=== PATIENT | female | born 1975 | race African-American/Black ===

== ENCOUNTER 2017-12-16 12:26 | Inpatient (IN) | payer MEDICAID ==
[2017-12-16] MEDS ORDERED: ONDANSETRON HCL INJ/PF 4 MG/2 ML SDV IV ONE (13:12)
[2017-12-16] MEDS ORDERED: HYDROMORPHONE HCL INJ/PF 2 MG/ML AMPULE IV ONE ×2 (13:12→15:52)
--- NOTE | 2017-12-16 13:14 | ER Document Report ---
ED Medical Screen (RME) - General Chief Complaint: Abdominal Pain Stated Complaint: ABDOMINAL PAIN Time Seen by Provider: 12/16/17 13:05 Mode of Arrival: Wheelchair Information source: Patient Notes: 42-year-old female presents with left lower quadrant abdominal pain that started 15 hours prior to arrival. Patient describes it as a constant stabbing pain with associated nausea and vomiting. Patient reports multiple abdominal surgeries including gastric bypass, panniculectomy, cholecystectomy, appendectomy, tubal ligation. I have greeted and performed a rapid initial assessment of this patient. A comprehensive ED assessment and evaluation of the patient, analysis of test results and completion of medical decision making process we will be contacted by additional ED providers. PHYSICAL EXAMINATION: Vital signs reviewed-afebrile GENERAL: Ill-appearing, mild distress LUNGS: No respiratory distress Musculoskeletal: Normal range of motion NEUROLOGICAL: Normal speech, normal gait. PSYCH: Normal mood, normal affect. SKIN: Warm, Dry, normal turgor, no rashes or lesions noted. TRAVEL OUTSIDE OF THE [place] IN LAST 30 DAYS: No - HPI Onset: Yesterday Onset/Duration: Gradual Quality of pain: Stabbing Associated Symptoms: Abdominal pain, Nausea, Vomiting Exacerbated by: Movement Relieved by: Denies Similar symptoms previously: No Recently seen / treated by doctor: No - Related Data Smoking: Non-smoker Frequency of alcohol use: None Drug Abuse: None Past Medical History Renal/ Medical History: Denies: Hx Peritoneal Dialysis Physical Exam - Vital signs Vitals: Temp Pulse Resp BP Pulse Ox 99.0 F 76 18 101/56 L 100 12/16/17 12:39 12/16/17 12:39 12/16/17 12:39 12/16/17 12:39 12/16/17 12:39 Course - Vital Signs Vital signs: Temp Pulse Resp BP Pulse Ox 99.0 F 76 18 101/56 L 100 12/16/17 12:39 12/16/17 12:39 12/16/17 12:39 12/16/17 12:39 12/16/17 12:39
[2017-12-16 13:55] LABS: APPEARANCE,URINE SLIGHTLY-CLOUDY; BILIRUBIN,URINE NEGATIVE (NEGATIVE); COLOR,URINE YELLOW; GLUCOSE, URINE NEGATIVE (NEGATIVE); KETONES,URINE NEGATIVE (NEGATIVE); LEUKOCYTE ESTERASE,URINE NEGATIVE (NEGATIVE); NITRITE,URINE NEGATIVE (NEGATIVE); PROTEIN,URINE NEGATIVE (NEGATIVE); URINE SPECIFIC GRAVITY 1.021; UROBILINOGEN,URINE NEGATIVE mg/dL (<2.0)
[2017-12-16 14:08] LABS: ABSOLUTE LYMPHOCYTES (AUTO) 0.6 10^3/uL (0.5-4.7); ABSOLUTE MONOCYTES (AUTO) 0.3 10^3/uL (0.1-1.4); ABSOLUTE NEUT (AUTO) 2.3 10^3/uL (1.7-8.2); BASOPHILS % (AUTO) 0.8 % (0-2); EOSINOPHILS % (AUTO) 1.3 % (0-6); HEMATOCRIT 25.9 % (36.0-47.0); LYMPHOCYTES % (AUTO) 17.7 % (13-45); MEAN CORPUSCULAR HEMOGLOBIN 17.6 pg (27.0-33.4); MEAN CORPUSCULAR HGB CONC 29.9 g/dL (32.0-36.0); MONOCYTES % (AUTO) 8.5 % (3-13); PLATELET COUNT 183 10^3/uL (150-450); RED CELL DISTRIBUTION WIDTH 20.3 % (11.5-14.0); SEGMENTED NEUTROPHILS % (AUTO) 71.7 % (42-78); TOTAL CELLS COUNTED % (AUTO) 100 %; WHITE BLOOD COUNT 3.3 10^3/uL (4.0-10.5)
[2017-12-16 14:14] LABS: ALANINE AMINOTRANSFERASE 27 U/L (9-52); ALBUMIN 4.4 g/dL (3.5-5.0); ALKALINE PHOSPHATASE 84 U/L (38-126); ANION GAP 13 (5-19); ASPARTATE AMINO TRANSFERASE 26 U/L (14-36); BILIRUBIN,DIRECT 0.2 mg/dL (0.0-0.4); BLOOD UREA NITROGEN 10 mg/dL (7-20); CALCIUM 9.5 mg/dL (8.4-10.2); CARBON DIOXIDE 19 mmol/L (22-30); CHLORIDE 107 mmol/L (98-107); GLUCOSE 81 mg/dL (75-110); LIPASE 98.7 U/L (23-300); POTASSIUM 4.7 mmol/L (3.6-5.0); SODIUM 138.7 mmol/L (137-145)
[2017-12-16 14:29] LABS: HEMOGLOBIN 7.8 g/dL (12.0-15.5)
[2017-12-16 14:30] LABS: MEAN CORPUSCULAR VOLUME 59 fl (80-97)
[2017-12-16 14:44] LABS: ANISOCYTOSIS 2+; HYPOCHROMASIA 3+; OVALOCYTES SLIGHT; PLATELET COMMENT ADEQUATE; PLATELET GIANT PRESENT; PLATELET LARGE PRESENT; POIKILOCYTOSIS SLIGHT
--- NOTE | 2017-12-16 15:00 | RADIOLOGY REPORT (SQ) ---
EXAM DESCRIPTION: CT ABD/PELVIS WITH IV ONLY COMPLETED DATE/TIME: 12/16/2017 2:36 pm REASON FOR STUDY: Right lower quadrant left lower quadrant abdominal pain COMPARISON: None. TECHNIQUE: CT scan of the abdomen and pelvis performed using helical scanning technique with dynamic intravenous contrast injection. No oral contrast. Images reviewed with lung, soft tissue, and bone windows. Reconstructed coronal and sagittal MPR images reviewed. Delayed images for evaluation of the urinary system also acquired. All images stored on PACS. All CT scanners at this facility use dose modulation, iterative reconstruction, and/or weight based d osing when appropriate to reduce radiation dose to as low as reasonably achievable (ALARA). [facility]: Dose Right [facility]: CareDose [facility]: Dose Right [facility]: Teradose 4D [facility]: [place] CONTRAST TYPE AND DOSE: contrast/concentration: Isovue 350.00 mg/ml; Total Contrast Delivered: 99.0 ml; Total Saline Delivered: 56.0 ml 99 mL IV Omnipaque 350- low osmolar. RENAL FUNCTION: BUN 10 creatinine 0.55 RADIATION DOSE: CT Rad equipment meets quality standard of care and radiation dose reduction techniq ues were employed. CTDIvol: 15.4 - 18.9 mGy. DLP: 1747 mGy-cm.. LIMITATIONS: None. FINDINGS: LOWER CHEST: No significant findings. No nodules or infiltrates. LIVER: Normal size. No masses. Mild intrahepatic and extrahepatic biliary dilatation, likely seconda ry to postcholecystectomy changes. SPLEEN: Normal size. No focal lesions. PANCREAS: No masses. No significant calcifications. No adjacent inflammation or peripancreatic fluid collections. Pancreatic duct not dilated. GALLBLADDER: Surgically absent. ADRENAL GLANDS: No significant masses or asymmetry. RIGHT KIDNEY AND URETER: No solid masses. No significant calcifications. No hydronephrosis or hy droureter. LEFT KIDNEY AND URETER: No solid masses. 1.5 x 2.0 cm cyst within the inferolateral cortex of the le ft kidney. No significant calcifications. No hydronephrosis or hydroureter. AORTA AND VESSELS: No aneurysm. No dissection. Renal arteries, SMA, celiac without stenosis. RETROPERITONEUM: No retroperitoneal adenopathy, hemorrhage or masses. BOWEL AND PERITONEAL CAVITY: No dilated loops of bowel. Suture material courses along the stomach. Minimal thickening with enhancement of the bolton of the sigmoid colon and rectum. No pericolonic fat stranding. No free fluid. No free air. APPENDIX: Surgically absent. PELVIS: Urinary bladder is collapsed. Left adnexal hypodensity measuring 5.2 x 5.7 cm. ABDOMINAL WALL: No masses. Tiny fat containing umbilical hernia. BONES: Schmorl's node of the posterosuperior endplate of L5. OTHER: No other significant finding. IMPRESSION: 1. Minimal thickening with enhancement within sigmoid colon and rectum. Infectious versus inflammato ry colitis. 2. Large left adnexal hypodensity, likely representing a benign ovarian cyst. Based on the patient's age in size, follow-up ultrasound recommended in 6 to 12 weeks to ensure stability versus resolution . TECHNICAL DOCUMENTATION: JOB ID: [id number] Quality ID # [id number]: Final reports with documentation of one or more dose reduction techniques (e.g., Au tomated exposure control, adjustment of the mA and/or kV according to patient size, use of iterative reconstruction technique) 2010 [employer]- All Rights Reserved Reading location - IP/workstation name: [email or web address]
--- NOTE | 2017-12-16 15:53 | ER Document Report ---
ED General - General Chief Complaint: Abdominal Pain Stated Complaint: ABDOMINAL PAIN Time Seen by Provider: 12/16/17 13:05 Mode of Arrival: Wheelchair Notes: 42-year-old female presents emergency department complaints of left lower quadrant abdominal pain that started about 15 hours prior to arrival to the emergency department. Patient describes the pain as a sharp and stabbing sensation localized to the left lower quadrant. She denies any radiation of the pain. She denies any alleviating or exacerbating factors. She is having some associated nausea and vomiting. She denies any diarrhea, constipation, dysuria, hematuria, vaginal bleeding, vaginal discharge. Patient states that she has had multiple abdominal surgeries. She has had gastric bypass, panniculectomy, cholecystectomy, appendectomy, tubal ligation. TRAVEL OUTSIDE OF THE [place] IN LAST 30 DAYS: No - HPI Onset: This morning Onset/Duration: Sudden Quality of pain: Sharp, Stabbing Severity: Severe Pain Level: 5 Associated symptoms: Nausea, Vomiting Exacerbated by: Denies Relieved by: Denies Similar symptoms previously: No Recently seen / treated by doctor: No - Related Data Allergies/Adverse Reactions: acetaminophen [From Percocet] Allergy (Verified 12/16/17 13:18) morphine Allergy (Verified 12/16/17 13:18) oxycodone Allergy (Verified 12/16/17 13:18) Penicillins Allergy (Verified 12/16/17 13:18) Respiratory distress ibuprofen Adverse Reaction (Verified 12/16/17 13:18) Past Medical History - General Information source: Patient - Social History Smoking Status: Never Smoker Frequency of alcohol use: None Drug Abuse: None Family History: Reviewed & Not Pertinent Patient has suicidal ideation: No Patient has homicidal ideation: No Pulmonary Medical History: Reports: Hx Asthma Renal/ Medical History: Denies: Hx Peritoneal Dialysis Past Surgical History: Reports: Hx Abdominal Surgery - Hernia Repair, Hx Appendectomy, Hx Cholecystectomy, Hx Gynecologic Surgery - Tubal Ligation Review of Systems - Review of Systems Constitutional: No symptoms reported EENT: No symptoms reported Cardiovascular: No symptoms reported Respiratory: No symptoms reported Gastrointestinal: Abdominal pain, Nausea, Vomiting Genitourinary: No symptoms reported Female Genitourinary: No symptoms reported Musculoskeletal: No symptoms reported Skin: No symptoms reported Neurological/Psychological: No symptoms reported -: Yes All other systems reviewed and negative Physical Exam - Vital signs Vitals: Temp Pulse Resp BP Pulse Ox 99.0 F 76 18 101/56 L 100 12/16/17 12:39 12/16/17 12:39 12/16/17 12:39 12/16/17 12:39 12/16/17 12:39 - Notes Notes: PHYSICAL EXAMINATION: GENERAL: Pale. And pain. HEAD: Atraumatic, normocephalic. EYES: Pupils equal round and reactive to light, extraocular movements intact, conjunctiva are normal. ENT: Nares patent, oropharynx clear without exudates. Moist mucous membranes. NECK: Normal range of motion, supple without lymphadenopathy LUNGS: Breath sounds clear to auscultation bilaterally and equal. No wheezes rales or rhonchi. HEART: Regular rate and rhythm without murmurs ABDOMEN: Soft, tenderness to palpation in the left lower quadrant. No guarding , no rebound. No masses appreciated. Female : deferred Musculoskeletal: Normal range of motion, no pitting or edema. No cyanosis. NEUROLOGICAL: Cranial nerves grossly intact. Normal speech, normal gait. Normal sensory, motor exams PSYCH: Normal mood, normal affect. SKIN: Warm, Dry, normal turgor, no rashes or lesions noted. Course - Re-evaluation Re-evalutation: 12/16/17 15:56 Patient having severe pain in the left lower quadrant area. Large ovarian cyst appreciated in this area. Also infectious versus inflammatory colitis was identified. I will obtain a pelvic ultrasound to rule out ovarian torsion. 12/16/17 17:13 Pelvic ultrasound done. No torsion appreciated. Hemoglobin is 7.8. Hemoccult negative. No gross blood on rectal examination. I discussed the abnormally low hemoglobin with the patient. She states that she has had issues with anemia in the past. She states that she has required blood transfusions for her anemia. Her last blood transfusion was in May 2017. I contacted the hospitalist for admission for repeat H&H and pain management for her colitis. The hospitalist is agreeable with admission. - Vital Signs Vital signs: Temp Pulse Resp BP Pulse Ox 99.0 F 76 18 101/56 L 100 12/16/17 12:39 12/16/17 12:39 12/16/17 12:39 12/16/17 12:39 12/16/17 12:39 - Laboratory Result Diagrams: 12/16/17 13:27 12/16/17 13:27 Laboratory results interpreted by me: 10/07/18 10/07/18 13:27 13:27 WBC 3.3 L Hgb 7.8 L Hct 25.9 L MCV 59 L MCH 17.6 L MCHC 29.9 L RDW 20.3 H Carbon Dioxide 19 L Discharge - Discharge Clinical Impression: Colitis Anemia Qualifiers: Anemia type: unspecified type Qualified Code(s): D64.9 - Anemia, unspecified Condition: Good Disposition: ADMITTED OBSERVATION Admitting Provider: Hospitalist Unit Admitted: Medical Floor Forms: Parent Work Note Referrals: PRASANNA DE GUZMAN JR, MD [Primary Care Provider] - Follow up as needed
--- NOTE | 2017-12-16 17:02 | RADIOLOGY REPORT (SQ) ---
EXAM DESCRIPTION: U/S NON OB PEL TV W/DOPPLER COMPLETED DATE/TIME: 12/16/2017 4:47 pm REASON FOR STUDY: Ovarian torsion. LLQ pain. COMPARISON: None. TECHNIQUE: Dynamic and static grayscale images acquired of the pelvis via transvaginal approach and recorded on PACS. Additional selected color Doppler and spectral images recorded. LIMITATIONS: None. FINDINGS: UTERUS: Contour normal. No mass. Uterus is 9.2 x 6.5 x 5.1 cm in size ENDOMETRIAL STRIPE: No focal or generalized thickening. No masses. Endometrial stripe 5 mm in thickn ess CERVIX: Closed, 3.4 cm in length. No nabothian cysts. RIGHT OVARY AND DOPPLER: Normal size, 3.3 x 2.6 x 1.9 cm. No worrisome masses. Normal arterial vascul ar flow without evidence for torsion. LEFT OVARY AND DOPPLER: Left ovary is 6.8 x 5.3 x 7.8 cm in size with a hemorrhagic cyst measuring 6. 5 x 6 x 5 cm in size. Normal arterial vascular flow without evidence for torsion. FREE FLUID: None noted. OTHER: No other significant finding. IMPRESSION: Hemorrhagic cyst left ovary, 6.5 x 6 x 5 cm in size. No Doppler ultrasound evidence for left ovarian torsion TECHNICAL DOCUMENTATION: JOB ID: [id number] [employer]- All Rights Reserved Rev-07/27 Reading location - IP/workstation name: [email or web address]
[2017-12-16] MEDS ORDERED: ONDANSETRON HCL INJ/PF 4 MG/2 ML SDV IV SCH (18:00)
[2017-12-16] MEDS ORDERED: FERRIC CARBOXYMALTOSE INJ 750 MG/15 ML VIAL IV ONE (18:00)
--- NOTE | 2017-12-16 18:09 | PDOC H&P ---
History of Present Illness Admission Date/PCP: PRASANNA DE GUZMAN JR, MD Patient complains of: Left lower quadrant abdominal pain, nausea, vomiting. 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 Patient presented to ED sharp, constant, nonradiating left lower abdominal pain 10/10 on severity scale, worsened by movement and palpation and decreased by staying still. She has had 3 nonbilious, nonbloody vomiting and 4 nonbloody diarrhea since yesterday. She also complaining of low- grade fever and painful urination however she denies any urgency, hesitancy, dysuria or any hematuria. She denies any chest pain shortness of breath, hematemesis, hemoptysis, melena, hematochezia or any vaginal bleeding. Past surgical history is positive for 2 , cholecystectomy, appendectomy and bariatric surgery. She is not taking any medications. She states she is not taking any iron for iron deficiency anemia as it has not been working. Her anemia has been evaluated in the past by a television reporter and it was concluded that it was due to iron deficiency. CT of abdomen and pelvis with IV contrast in ED showed minimal thickening with enhancement within sigmoid colon and rectum likely infectious versus inflammatory colitis. A large left adnexal hypodensity was also noted follow- up transvaginal ultrasound showed hemorrhagic left ovarian cyst 6.5 x 6.5 cm in size no evidence of left ovarian torsion was noted. DONNIE and stool guaiac was in ED were both negative for any sign of bleeding. Hospitalist was consulted for admission for management of colitis and anemia. Past Medical History Pulmonary Medical History: Reports: Asthma Hematology: Reports: Anemia Past Surgical History Past Surgical History: Reports: Appendectomy, Cholecystectomy Social History Information Source: Patient Lives with: Spouse/Significant other Smoking Status: Never Smoker Frequency of Alcohol Use: None Hx Recreational Drug Use: No Drugs: None Family History Family History: Reviewed & Not Pertinent Parental Family History Reviewed: Yes Children Family History Reviewed: Yes Sibling(s) Family History Reviewed.: Yes Medication/Allergy Allergies/Adverse Reactions: acetaminophen [From Percocet] Allergy (Verified 12/16/17 13:18) morphine Allergy (Verified 12/16/17 13:18) oxycodone Allergy (Verified 12/16/17 13:18) Penicillins Allergy (Verified 12/16/17 13:18) Respiratory distress ibuprofen Adverse Reaction (Verified 12/16/17 13:18) Review of Systems Review of Systems: As per HPI Physical Exam Vital Signs: Temp Pulse Resp BP Pulse Ox 99.0 F 76 18 101/56 L 100 12/16/17 12:39 12/16/17 12:39 12/16/17 12:39 12/16/17 12:39 12/16/17 12:39 Intake & Output 12/15/17 12/16/17 12/17/17 06:59 06:59 06:59 Weight 89.7 kg General appearance: PRESENT: no acute distress, well-developed, well-nourished Head exam: PRESENT: atraumatic, normocephalic Eye exam: PRESENT: conjunctiva pink, EOMI, PERRLA. ABSENT: scleral icterus Ear exam: PRESENT: normal external ear exam Mouth exam: PRESENT: moist, tongue midline Neck exam: ABSENT: carotid bruit, JVD, lymphadenopathy, thyromegaly Respiratory exam: PRESENT: clear to auscultation alexandrea. ABSENT: rales, rhonchi, wheezes Cardiovascular exam: PRESENT: RRR. ABSENT: diastolic murmur, rubs, systolic murmur Pulses: PRESENT: normal dorsalis pedis pul Vascular exam: PRESENT: normal capillary refill GI/Abdominal exam: PRESENT: guarding, normal bowel sounds, soft, tenderness. ABSENT: distended, mass, organolmegaly, rebound Rectal exam: PRESENT: deferred Extremities exam: PRESENT: full ROM. ABSENT: calf tenderness, clubbing, pedal edema Neurological exam: PRESENT: alert, awake, oriented to person, oriented to place , oriented to time, oriented to situation, CN II-XII grossly intact. ABSENT: motor sensory deficit Psychiatric exam: PRESENT: appropriate affect, normal mood. ABSENT: homicidal ideation, suicidal ideation Skin exam: PRESENT: dry, intact, warm. ABSENT: cyanosis, rash Results Laboratory Results: 12/16/17 13:27 12/16/17 13:27 12/16/17 12/16/17 12/16/17 13:27 13:27 13:27 WBC 3.3 L RBC 4.40 Hgb 7.8 L Hct 25.9 L MCV 59 L MCH 17.6 L MCHC 29.9 L RDW 20.3 H Plt Count 183 Seg Neutrophils % 71.7 Lymphocytes % 17.7 Monocytes % 8.5 Eosinophils % 1.3 Basophils % 0.8 Absolute Neutrophils 2.3 Absolute Lymphocytes 0.6 Absolute Monocytes 0.3 Absolute Eosinophils 0.0 Absolute Basophils 0.0 Sodium 138.7 Potassium 4.7 Chloride 107 Carbon Dioxide 19 L Anion Gap 13 BUN 10 Creatinine 0.55 Est GFR ( Amer) > 60 Est GFR (Non-Af Amer) > 60 Glucose 81 Calcium 9.5 Total Bilirubin 1.0 AST 26 ALT 27 Alkaline Phosphatase 84 Total Protein 8.0 Albumin 4.4 Lipase 98.7 Urine Color YELLOW Urine Appearance SLIGHTLY-CLOUDY Urine pH 7.0 Ur Specific [place] 1.021 Urine Protein NEGATIVE Urine Glucose (UA) NEGATIVE Urine Ketones NEGATIVE Urine Blood NEGATIVE Urine Nitrite NEGATIVE Ur Leukocyte Esterase NEGATIVE Urine WBC (Auto) 1 Urine RBC (Auto) 0 Stool Occult Blood Blood Type Antibody Screen 12/16/17 12/16/17 15:02 15:51 WBC RBC Hgb Hct MCV MCH MCHC RDW Plt Count Seg Neutrophils % Lymphocytes % Monocytes % Eosinophils % Basophils % Absolute Neutrophils Absolute Lymphocytes Absolute Monocytes Absolute Eosinophils Absolute Basophils Sodium Potassium Chloride Carbon Dioxide Anion Gap BUN Creatinine Est GFR ( Amer) Est GFR (Non-Af Amer) Glucose Calcium Total Bilirubin AST ALT Alkaline Phosphatase Total Protein Albumin Lipase Urine Color Urine Appearance Urine pH Ur Specific [place] Urine Protein Urine Glucose (UA) Urine Ketones Urine Blood Urine Nitrite Ur Leukocyte Esterase Urine WBC (Auto) Urine RBC (Auto) Stool Occult Blood NEGATIVE Blood Type O POSITIVE Antibody Screen NEGATIVE Impressions: Abdomen/Pelvis CT 12/16/17 13:11 IMPRESSION: 1. Minimal thickening with enhancement within sigmoid colon and rectum. Infectious versus inflammatory colitis. 2. Large left adnexal hypodensity, likely representing a benign ovarian cyst. Based on the patient's age in size, follow-up ultrasound recommended in 6 to 12 weeks to ensure stability versus resolution. Transvaginal US 12/16/17 15:51 IMPRESSION: Hemorrhagic cyst left ovary, 6.5 x 6 x 5 cm in size. No Doppler ultrasound evidence for left ovarian torsion Assessment & Plan - Diagnosis (1) Colitis Is this a current diagnosis for this admission?: Yes Plan: CT abdomen positive for enhancement within sigmoid colon and rectum. Negative for diverticulitis. No history of radiation. IV levofloxacin. Stool study for C. difficile, ova and parasite, white blood cells, Gram stain and culture. Pain management with Dilaudid as patient is allergic to morphine oxycodone ibuprofen and acetaminophen. (2) Nausea vomiting and diarrhea Is this a current diagnosis for this admission?: Yes Plan: Likely viral gastroenteritis. Negative leukocytosis. Anti-emetics. Volume resuscitation. Monitor vitals. (3) Hemorrhagic cyst of left ovary Is this a current diagnosis for this admission?: Yes Plan: Unlikely the source of pain. Could be an incidental finding. Transvaginal ultrasound negative for torsion. Consult PACE ANALYST for further recommendation. (4) Anemia Qualifiers: Anemia type: iron deficiency Is this a current diagnosis for this admission?: Yes Plan: Microcytic. As per HPI patient states that she has had iron deficiency anemia since she had bariatric surgery in 2016. She has received this several PRBC infusion and several iron infusion. She states her anemia has been worked up by a television reporter at [place]. We will get another iron panel. 1 dose of Injectafer. CBC at 2000. If under 7 transfuse. (5) Hx of bariatric surgery Is this a current diagnosis for this admission?: Yes Plan: Patient has had bariatric surgery in 2016. Per patient her anemia was a complication of her bariatric surgery.
[2017-12-16 18:22] LABS: ABSOLUTE RETICS # 0.072 10^6/uL (0.028-0.122); RETICULOCYTE COUNT (AUTO) 1.66 % (0.66-2.85)
[2017-12-16 18:34] LABS: IRON(TIBC) 20.2 ug/dL (37-170)
[2017-12-16] MEDS ORDERED: NORMAL SALINE 250 ML IV PRN (18:38)
[2017-12-16 19:10] LABS: FERRITIN 4.02 ng/mL (6.2-137.0)
[2017-12-16] MEDS: LEVOFLOXACIN 750 MG/D5W RTU 750 MG/150 ML RTUPB IV SCH (19:21)
[2017-12-16] MEDS: HYDROMORPHONE HCL INJ/PF 2 MG/ML AMPULE IV PRN ×2 (19:21→22:27)
[2017-12-16] MEDS: DEXTROSE 5%-NORMAL SALINE 1,000 ML IV PRN (19:22)
[2017-12-16 19:40] LABS: FOLATE 4.71 ng/mL (>2.76)
[2017-12-16] MEDS ORDERED: METOCLOPRAMIDE HCL INJ/PF 10 MG/2 ML SDV IV ONE (20:30)
[2017-12-16] MEDS: PANTOPRAZOLE SODIUM 40 MG VIAL IV SCH (22:18)
[2017-12-17] MEDS: METOCLOPRAMIDE HCL INJ/PF 10 MG/2 ML SDV IV SCH ×5 (00:51→23:23)
[2017-12-17] MEDS: HYDROMORPHONE HCL INJ/PF 2 MG/ML AMPULE IV PRN ×5 (01:26→20:23)
[2017-12-17 03:33] LABS: ABSOLUTE LYMPHOCYTES (AUTO) 0.5 10^3/uL (0.5-4.7); ABSOLUTE MONOCYTES (AUTO) 0.4 10^3/uL (0.1-1.4); ABSOLUTE NEUT (AUTO) 2.7 10^3/uL (1.7-8.2); BASOPHILS % (AUTO) 0.7 % (0-2); HEMATOCRIT 23.6 % (36.0-47.0); LYMPHOCYTES % (AUTO) 13.3 % (13-45); MEAN CORPUSCULAR HEMOGLOBIN 18.5 pg (27.0-33.4); MEAN CORPUSCULAR HGB CONC 30.2 g/dL (32.0-36.0); MEAN CORPUSCULAR VOLUME 61 fl (80-97); PLATELET COUNT 140 10^3/uL (150-450); RED BLOOD COUNT 3.85 10^6/uL (3.72-5.28); RED CELL DISTRIBUTION WIDTH 21.9 % (11.5-14.0); TOTAL CELLS COUNTED % (AUTO) 100 %; WHITE BLOOD COUNT 3.6 10^3/uL (4.0-10.5)
[2017-12-17 03:37] LABS: HEMOGLOBIN 7.1 g/dL (12.0-15.5)
[2017-12-17 03:44] LABS: ALANINE AMINOTRANSFERASE 33 U/L (9-52); ALBUMIN 3.5 g/dL (3.5-5.0); ALKALINE PHOSPHATASE 60 U/L (38-126); ANION GAP 11 (5-19); ASPARTATE AMINO TRANSFERASE 18 U/L (14-36); BILIRUBIN,DIRECT 0.2 mg/dL (0.0-0.4); BILIRUBIN,TOTAL 1.8 mg/dL (0.2-1.3); BLOOD UREA NITROGEN 9 mg/dL (7-20); CALCIUM 8.6 mg/dL (8.4-10.2); CARBON DIOXIDE 20 mmol/L (22-30); CHLORIDE 106 mmol/L (98-107); GLUCOSE 99 mg/dL (75-110); POTASSIUM 4.7 mmol/L (3.6-5.0); SODIUM 136.8 mmol/L (137-145); TOTAL PROTEIN 6.7 g/dL (6.3-8.2)
[2017-12-17 04:06] LABS: TOXIC GRANULATION SLIGHT
[2017-12-17 04:07] LABS: ANISOCYTOSIS 3+; HELMET CELLS SLIGHT; OVALOCYTES 3+; PLATELET COMMENT ADEQUATE; POIKILOCYTOSIS 4+
[2017-12-17 04:30] LABS: HEMATOCRIT 23.2 % (36.0-47.0); MEAN CORPUSCULAR HEMOGLOBIN 18.7 pg (27.0-33.4); MEAN CORPUSCULAR HGB CONC 31.2 g/dL (32.0-36.0); MEAN CORPUSCULAR VOLUME 60 fl (80-97); PLATELET COUNT 143 10^3/uL (150-450); RED BLOOD COUNT 3.86 10^6/uL (3.72-5.28); RED CELL DISTRIBUTION WIDTH 21.7 % (11.5-14.0); WHITE BLOOD COUNT 3.6 10^3/uL (4.0-10.5)
[2017-12-17 04:39] LABS: HEMOGLOBIN 7.2 g/dL (12.0-15.5)
--- NOTE | 2017-12-17 06:38 | PDOC CONSULTATION ---
History of Present Illness Admission Date/PCP: 12/16/17 17:29 PRASANNA DE GUZMAN JR, MD Patient complains of: abdominal pain, nausea and vomiting History of Present Illness: RAMÍREZ ARCE is a 42 year old female presented to ER with abdominal pain, nausea, vomiting and was admitted with findings of colitis on ct scan. Incidental finding of a hemorragic cyst on ovary. doppler flow displayed no evidence of torsion. Past Medical History Pulmonary Medical History: Reports: Asthma Psychiatric Medical History: Denies: Depression Social History Lives with: Spouse/Significant other Smoking Status: Never Smoker Frequency of Alcohol Use: None Hx Recreational Drug Use: No Drugs: None Hx Prescription Drug Abuse: No Family History Family History: Reviewed & Not Pertinent Parental Family History Reviewed: Yes Children Family History Reviewed: Yes Sibling(s) Family History Reviewed.: Yes Medication/Allergy Allergies/Adverse Reactions: acetaminophen [From Percocet] Allergy (Verified 12/16/17 13:18) morphine Allergy (Verified 12/16/17 13:18) oxycodone Allergy (Verified 12/16/17 13:18) Penicillins Allergy (Verified 12/16/17 13:18) Respiratory distress ibuprofen Adverse Reaction (Verified 12/16/17 13:18) Physical Exam - Physical Exam Vital Signs: Temp Pulse Resp BP Pulse Ox 98.6 F 64 16 112/58 L 98 12/17/17 00:45 12/17/17 00:45 12/17/17 00:45 12/17/17 00:45 12/17/17 00:45 Intake & Output 12/15/17 12/16/17 12/17/17 06:59 06:59 06:59 Intake Total 672 Balance 672 Weight 92.4 kg General appearance: PRESENT: no acute distress, cooperative GI/Abdominal exam: PRESENT: soft, tenderness Result Laboratory Results: 12/17/17 04:20 12/17/17 03:14 12/17/17 12/17/17 12/17/17 03:14 03:14 04:20 WBC 3.6 L 3.6 L RBC 3.85 3.86 Hgb 7.1 L 7.2 L Hct 23.6 L 23.2 L MCV 61 L 60 L MCH 18.5 L 18.7 L MCHC 30.2 L 31.2 L RDW 21.9 H 21.7 H Plt Count 140 L 143 L Seg Neutrophils % 75.0 Lymphocytes % 13.3 Monocytes % 10.0 Eosinophils % 1.0 Basophils % 0.7 Absolute Neutrophils 2.7 Absolute Lymphocytes 0.5 Absolute Monocytes 0.4 Absolute Eosinophils 0.0 Absolute Basophils 0.0 Sodium 136.8 L Potassium 4.7 Chloride 106 Carbon Dioxide 20 L Anion Gap 11 BUN 9 Creatinine 0.53 Est GFR ( Amer) > 60 Est GFR (Non-Af Amer) > 60 Glucose 99 Calcium 8.6 Magnesium 1.8 Total Bilirubin 1.8 H AST 18 ALT 33 Alkaline Phosphatase 60 Total Protein 6.7 Albumin 3.5 Impressions: Abdomen/Pelvis CT 12/16/17 13:11 IMPRESSION: 1. Minimal thickening with enhancement within sigmoid colon and rectum. Infectious versus inflammatory colitis. 2. Large left adnexal hypodensity, likely representing a benign ovarian cyst. Based on the patient's age in size, follow-up ultrasound recommended in 6 to 12 weeks to ensure stability versus resolution. Transvaginal US 12/16/17 15:51 IMPRESSION: Hemorrhagic cyst left ovary, 6.5 x 6 x 5 cm in size. No Doppler ultrasound evidence for left ovarian torsion Status: Image reviewed by me Assessment & Plan - Diagnosis (1) Colitis Is this a current diagnosis for this admission?: Yes (2) Hemorrhagic cyst of left ovary Is this a current diagnosis for this admission?: Yes (3) Nausea vomiting and diarrhea Is this a current diagnosis for this admission?: Yes - Plan Summary Plan Summary: recommend outpatient follow up as cyst may resolve spontaneously. would recommend repeating imaging in approximately 6 weeks. Would not recommend surgery at this time in light of bowel inflammation process.
--- NOTE | 2017-12-17 08:31 | PDOC PROGRESS REPORT ---
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 Patient presented to ED sharp, constant, nonradiating left lower abdominal pain 10/10 on severity scale, worsened by movement and palpation and decreased by staying still. She has had 3 nonbilious, nonbloody vomiting and 4 nonbloody diarrhea since yesterday. She also complaining of low- grade fever and painful urination however she denies any urgency, hesitancy, dysuria or any hematuria. She denies any chest pain shortness of breath, hematemesis, hemoptysis, melena, hematochezia or any vaginal bleeding. Past surgical history is positive for 2 , cholecystectomy, appendectomy and bariatric surgery. She is not taking any medications. She states she is not taking any iron for iron deficiency anemia as it has not been working. Her anemia has been evaluated in the past by a investigator internal affairs and it was concluded that it was due to iron deficiency. CT of abdomen and pelvis with IV contrast in ED showed minimal thickening with enhancement within sigmoid colon and rectum likely infectious versus inflammatory colitis. A large left adnexal hypodensity was also noted follow- up transvaginal ultrasound showed hemorrhagic left ovarian cyst 6.5 x 6.5 cm in size no evidence of left ovarian torsion was noted. 12/17/2017. No acute events overnight. Patient is status post 1 PRBC transfusion. On my encounter patient is sitting in bed having her breakfast. Stating that she is feeling much better and she has not had any vomiting or diarrhea since admission. She told me that [facility] was in her room prior to my arrival and they told her that her left ovarian cyst does not is surgery at the time and she will follow up with them in 6-week as outpatient. Left lower quadrant abdominal pain has improved significantly. She denies any fever, chills, nausea, vomiting, diarrhea, constipation, urinary symptoms, chest pain or shortness of breath. Reason For Visit: COLITIS,ANEMIA Physical Exam Vital Signs: Temp Pulse Resp BP Pulse Ox 98.0 F 61 14 105/58 L 98 12/17/17 07:28 12/17/17 07:28 12/17/17 07:28 12/17/17 07:28 12/17/17 07:28 Intake & Output 12/16/17 12/17/17 12/18/17 06:59 06:59 06:59 Intake Total 672 Balance 672 Weight 92.4 kg Results Laboratory Results: 12/17/17 04:20 12/17/17 03:14 12/17/17 12/17/17 12/17/17 03:14 03:14 04:20 WBC 3.6 L 3.6 L RBC 3.85 3.86 Hgb 7.1 L 7.2 L Hct 23.6 L 23.2 L MCV 61 L 60 L MCH 18.5 L 18.7 L MCHC 30.2 L 31.2 L RDW 21.9 H 21.7 H Plt Count 140 L 143 L Seg Neutrophils % 75.0 Lymphocytes % 13.3 Monocytes % 10.0 Eosinophils % 1.0 Basophils % 0.7 Absolute Neutrophils 2.7 Absolute Lymphocytes 0.5 Absolute Monocytes 0.4 Absolute Eosinophils 0.0 Absolute Basophils 0.0 Sodium 136.8 L Potassium 4.7 Chloride 106 Carbon Dioxide 20 L Anion Gap 11 BUN 9 Creatinine 0.53 Est GFR ( Amer) > 60 Est GFR (Non-Af Amer) > 60 Glucose 99 Calcium 8.6 Magnesium 1.8 Total Bilirubin 1.8 H AST 18 ALT 33 Alkaline Phosphatase 60 Total Protein 6.7 Albumin 3.5 Impressions: Abdomen/Pelvis CT 12/16/17 13:11 IMPRESSION: 1. Minimal thickening with enhancement within sigmoid colon and rectum. Infectious versus inflammatory colitis. 2. Large left adnexal hypodensity, likely representing a benign ovarian cyst. Based on the patient's age in size, follow-up ultrasound recommended in 6 to 12 weeks to ensure stability versus resolution. Transvaginal US 12/16/17 15:51 IMPRESSION: Hemorrhagic cyst left ovary, 6.5 x 6 x 5 cm in size. No Doppler ultrasound evidence for left ovarian torsion Assessment & Plan - Diagnosis (1) Colitis Is this a current diagnosis for this admission?: Yes Plan: CT abdomen positive for enhancement within sigmoid colon and rectum. Negative for diverticulitis. No history of radiation. IV levofloxacin day 2. Follow- up stool study for study for C. difficile, ova and parasite, white blood cells, Gram stain and culture. Pain management with Dilaudid as patient is allergic to morphine oxycodone ibuprofen and acetaminophen. (2) Nausea vomiting and diarrhea Is this a current diagnosis for this admission?: Yes Plan: Likely due to gastroenteritis/colitis. Negative leukocytosis. Anti-emetics. Volume resuscitation. Monitor vitals. (3) Hemorrhagic cyst of left ovary Is this a current diagnosis for this admission?: Yes Plan: Unlikely the source of pain. Could be an incidental finding. Transvaginal ultrasound negative for torsion. As per [facility] notes no surgery at this point as cyst may resolve on its own. Outpatient follow-up with Dr. Padilla in 6 weeks and follow-up imaging. (4) Anemia Qualifiers: Anemia type: iron deficiency Is this a current diagnosis for this admission?: Yes Plan: Microcytic. As per HPI patient states that she has had iron deficiency anemia since she had bariatric surgery in 2016. She has received several PRBC transfusion and several iron infusions. She states her anemia has been worked up by a investigator internal affairs at [place]. Status post 1 PRBC transfusion. One more scheduled. Hemoglobin remains under 7. Given 1 dose of Injectafer. Ferrous sulfate twice daily. Consult hematology for further recommendation. (5) Hx of bariatric surgery Is this a current diagnosis for this admission?: Yes Plan: Patient has had bariatric surgery in 2016. Per patient her anemia was a complication of her bariatric surgery.
[2017-12-17] MEDS: PANTOPRAZOLE SODIUM 40 MG VIAL IV SCH ×2 (09:22→21:25)
[2017-12-17] MEDS: ENOXAPARIN SODIUM INJ 40 MG/0.4 ML DISP.SYRIN SUBCUT SCH (09:23)
[2017-12-17] MEDS ORDERED: FERRIC CARBOXYMALTOSE INJ 750 MG/15 ML VIAL IV SCH (12:15)
[2017-12-17 14:16] LABS: PATH REVIEW PATHOLOGIST REVIEWED
[2017-12-17] MEDS: DEXTROSE 5%-NORMAL SALINE 1,000 ML IV PRN (14:28)
[2017-12-17] MEDS ORDERED: FERRIC CARBOXYMALTOSE 750 MG in NORMAL SALINE 250 ML IV ONE (15:00)
[2017-12-17] MEDS: LEVOFLOXACIN 750 MG/D5W RTU 750 MG/150 ML RTUPB IV SCH (17:28)
--- NOTE | 2017-12-17 19:24 | PDOC CONSULTATION ---
Consultation Consult Date: 12/17/17 Consult reason:: Hematology/Oncology consultation was requested for patient with iron deficiency anemia after bariatric bypass. History of Present Illness Admission Date/PCP: 12/16/17 17:29 PRASANNA DE GUZMAN JR, MD History of Present Illness: RAMÍREZ ARCE is a 42 year old female who recently moved here from [place]. She underwent Bariatric bypass surgery and has lost over 300 lbs since the procedure. About 7-8 months ago, she began having difficulty with iron, calcium and Vit D absorption. She became anemic and was not responding to oral iron. She was receiving INFeD infusions every other week and her iron levels were still not improving. She presented to [facility] with fatigue and was found to have HGB 7.8 with Ferritin 4. She also underwent CT scan which showed abnormalities in the colon consistent with colitis. Currently she is feeling better after IV iron and blood transfusion. Past Medical History Pulmonary Medical History: Reports: Asthma Psychiatric Medical History: Denies: Depression Hematology: Reports: Anemia Past Surgical History Past Surgical History: Reports: Appendectomy, Cholecystectomy, Other - Gastric bariatric bypass, C-sec x 2, Paniculectomy. Social History Occupation: Homemaker Lives with: Spouse/Significant other, Other - Lives with fiancee.2 children. Smoking Status: Never Smoker Frequency of Alcohol Use: None Hx Recreational Drug Use: No Drugs: None Hx Prescription Drug Abuse: No Family History Family History: Reviewed & Not Pertinent Family History: PGM with CAD, DM, HTN, CVA. Parental Family History Reviewed: Yes - Mother breast cancer age 32. Father alive with HTN, CVA. Children Family History Reviewed: Yes Sibling(s) Family History Reviewed.: Yes Medication/Allergy Home Medications: No Home Medications 12/17/17 Allergies/Adverse Reactions: acetaminophen [From Percocet] Allergy (Verified 12/16/17 13:18) morphine Allergy (Verified 12/16/17 13:18) oxycodone Allergy (Verified 12/16/17 13:18) Penicillins Allergy (Verified 12/16/17 13:18) Respiratory distress ibuprofen Adverse Reaction (Verified 12/16/17 13:18) Review of Systems Constitutional: ABSENT: fever(s) Eyes: ABSENT: visual disturbances Ears: ABSENT: hearing changes Nose, Mouth, and Throat: ABSENT: sore throat Cardiovascular: PRESENT: dyspnea on exertion Respiratory: PRESENT: dyspnea Gastrointestinal: PRESENT: abdominal pain Genitourinary: ABSENT: dysuria Integumentary: ABSENT: rash Neurological: ABSENT: weakness Hematologic/Lymphatic: ABSENT: lymphadenopathy Physical Exam Vital Signs: Temp Pulse Resp BP Pulse Ox 98.4 F 62 14 114/60 100 12/17/17 15:53 12/17/17 15:53 12/17/17 15:53 12/17/17 15:53 12/17/17 15:53 Intake & Output 12/16/17 12/17/17 12/18/17 06:59 06:59 06:59 Intake Total 672 1565 Balance 672 1565 Weight 92.4 kg General appearance: PRESENT: no acute distress, obese Exam: 42 year old female. Head exam: PRESENT: atraumatic, normocephalic Eye exam: PRESENT: EOMI Mouth exam: PRESENT: tongue midline Neck exam: ABSENT: lymphadenopathy, tenderness Respiratory exam: PRESENT: clear to auscultation alexandrea, unlabored Cardiovascular exam: PRESENT: RRR GI/Abdominal exam: PRESENT: soft, tenderness - Left abdomen. Extremities exam: ABSENT: pedal edema Neurological exam: PRESENT: alert, awake Psychiatric exam: PRESENT: appropriate affect Skin exam: PRESENT: normal color Results Laboratory Results: 12/17/17 04:20 12/17/17 03:14 12/17/17 12/17/17 12/17/17 03:14 03:14 04:20 WBC 3.6 L 3.6 L RBC 3.85 3.86 Hgb 7.1 L 7.2 L Hct 23.6 L 23.2 L MCV 61 L 60 L MCH 18.5 L 18.7 L MCHC 30.2 L 31.2 L RDW 21.9 H 21.7 H Plt Count 140 L 143 L Seg Neutrophils % 75.0 Lymphocytes % 13.3 Monocytes % 10.0 Eosinophils % 1.0 Basophils % 0.7 Absolute Neutrophils 2.7 Absolute Lymphocytes 0.5 Absolute Monocytes 0.4 Absolute Eosinophils 0.0 Absolute Basophils 0.0 Sodium 136.8 L Potassium 4.7 Chloride 106 Carbon Dioxide 20 L Anion Gap 11 BUN 9 Creatinine 0.53 Est GFR ( Amer) > 60 Est GFR (Non-Af Amer) > 60 Glucose 99 Calcium 8.6 Magnesium 1.8 Total Bilirubin 1.8 H AST 18 ALT 33 Alkaline Phosphatase 60 Total Protein 6.7 Albumin 3.5 Impressions: Abdomen/Pelvis CT 12/16/17 13:11 IMPRESSION: 1. Minimal thickening with enhancement within sigmoid colon and rectum. Infectious versus inflammatory colitis. 2. Large left adnexal hypodensity, likely representing a benign ovarian cyst. Based on the patient's age in size, follow-up ultrasound recommended in 6 to 12 weeks to ensure stability versus resolution. Transvaginal US 12/16/17 15:51 IMPRESSION: Hemorrhagic cyst left ovary, 6.5 x 6 x 5 cm in size. No Doppler ultrasound evidence for left ovarian torsion Assessment & Plan - Diagnosis (1) Hx of bariatric surgery Is this a current diagnosis for this admission?: Yes (2) Iron deficiency anemia Qualifiers: Iron deficiency anemia type: inadequate dietary iron intake Qualified Code( s): D50.8 - Other iron deficiency anemias Is this a current diagnosis for this admission?: Yes Plan: Although patient has had IV iron in the past, she was still loosing iron faster that IV iron could be given. Although she has decreased absorption due to her surgery, I believe there is also some component of blood loss. Her CT scan indicated colitis. I will consult Dr. Ackerman and hopefully EGD and colonoscopy can be arranged urgently while in hospital. She has receive blood transfusion as well as IV iron. I will also monitor her blood counts and see how quickly her blood counts change as well as her iron levels. I will check LDH, although no current evidence of hemolysis. - Plan Summary Plan Summary: I will continue to follow her. Thank you for this consultation. Please call me if needed.
[2017-12-18] MEDS: HYDROMORPHONE HCL INJ/PF 2 MG/ML AMPULE IV PRN ×4 (01:50→21:30)
[2017-12-18] MEDS: METOCLOPRAMIDE HCL INJ/PF 10 MG/2 ML SDV IV SCH ×4 (05:22→23:30)
[2017-12-18] MEDS: DEXTROSE 5%-NORMAL SALINE 1,000 ML IV PRN ×2 (05:23→17:00)
[2017-12-18 05:59] LABS: ABSOLUTE EOSINOPHILS # (AUTO) 0.1 10^3/uL (0.0-0.6); ABSOLUTE LYMPHOCYTES (AUTO) 0.5 10^3/uL (0.5-4.7); ABSOLUTE MONOCYTES (AUTO) 0.4 10^3/uL (0.1-1.4); ABSOLUTE NEUT (AUTO) 2.4 10^3/uL (1.7-8.2); BASOPHILS % (AUTO) 1.1 % (0-2); EOSINOPHILS % (AUTO) 1.9 % (0-6); HEMATOCRIT 24.4 % (36.0-47.0); LYMPHOCYTES % (AUTO) 15.5 % (13-45); MEAN CORPUSCULAR HEMOGLOBIN 19.5 pg (27.0-33.4); MEAN CORPUSCULAR HGB CONC 31.9 g/dL (32.0-36.0); MEAN CORPUSCULAR VOLUME 61 fl (80-97); MONOCYTES % (AUTO) 11.2 % (3-13); PLATELET COUNT 128 10^3/uL (150-450); RED BLOOD COUNT 3.99 10^6/uL (3.72-5.28); RED CELL DISTRIBUTION WIDTH 23.9 % (11.5-14.0); SEGMENTED NEUTROPHILS % (AUTO) 70.3 % (42-78); TOTAL CELLS COUNTED % (AUTO) 100 %; WHITE BLOOD COUNT 3.4 10^3/uL (4.0-10.5)
[2017-12-18 06:18] LABS: ALANINE AMINOTRANSFERASE 22 U/L (9-52); ALBUMIN 3.3 g/dL (3.5-5.0); ALKALINE PHOSPHATASE 57 U/L (38-126); ANION GAP 5 (5-19); ASPARTATE AMINO TRANSFERASE 16 U/L (14-36); BILIRUBIN,DIRECT 0.4 mg/dL (0.0-0.4); BILIRUBIN,TOTAL 0.9 mg/dL (0.2-1.3); BLOOD UREA NITROGEN 8 mg/dL (7-20); CALCIUM 8.5 mg/dL (8.4-10.2); CARBON DIOXIDE 24 mmol/L (22-30); CHLORIDE 108 mmol/L (98-107); GLUCOSE 85 mg/dL (75-110); POTASSIUM 3.9 mmol/L (3.6-5.0); SODIUM 137.2 mmol/L (137-145); TOTAL PROTEIN 6.3 g/dL (6.3-8.2)
[2017-12-18 06:45] LABS: HEMOGLOBIN 7.8 g/dL (12.0-15.5)
[2017-12-18 06:47] LABS: ANISOCYTOSIS 3+; HYPOCHROMASIA 2+; OVALOCYTES 1+; PLATELET COMMENT DECREASED; POIKILOCYTOSIS 1+; TEAR DROP CELLS SLIGHT
--- NOTE | 2017-12-18 09:14 | PDOC CONSULTATION ---
Consultation Consult Date: 12/18/17 Attending physician:: SCARLETT WHITLEY Consult reason:: Anemia, gastric bypass. abnormal CT scan History of Present Illness Admission Date/PCP: 12/16/17 17:29 PRASANNA DE GUZMAN JR, MD History of Present Illness: RAMÍREZ ARCE is a 42 year old female Asked to see this patient by Dr Mckinney patient has had a history of gastric bypass and has been having some upper GI symptoms of nausea and vomiting patient was admitted and noted to have anemia patient had CT scan because of RLQ pain but as it turns out there is non specific thickening of the sigmoid and rectum ,( left side ) C. Diff has been ordered Dr Mckinney believes that patient is bleeding, heme negative stool requesting GI work up patient needs EGD and colonoscopy anemia may be due to inability of oral absorption due to the fact that the bypassed segment is responsible for the absorption may need parental iron therapy which Dr Mckinney is addressing will exclude a source of GI bleeding Past Medical History Pulmonary Medical History: Reports: Asthma Psychiatric Medical History: Denies: Depression Hematology: Reports: Anemia Past Surgical History Past Surgical History: Reports: Appendectomy, Cholecystectomy, Other - Gastric bariatric bypass, C-sec x 2, Paniculectomy. Social History Lives with: Spouse/Significant other, Other - Lives with fiancee.2 children. Smoking Status: Never Smoker Frequency of Alcohol Use: None Hx Recreational Drug Use: No Drugs: None Hx Prescription Drug Abuse: No Family History Family History: Reviewed & Not Pertinent Parental Family History Reviewed: Yes Children Family History Reviewed: Unknown Sibling(s) Family History Reviewed.: Unknown Medication/Allergy Home Medications: No Home Medications 12/17/17 Allergies/Adverse Reactions: acetaminophen [From Percocet] Allergy (Verified 12/16/17 13:18) morphine Allergy (Verified 12/16/17 13:18) oxycodone Allergy (Verified 12/16/17 13:18) Penicillins Allergy (Verified 12/16/17 13:18) Respiratory distress ibuprofen Adverse Reaction (Verified 12/16/17 13:18) Review of Systems Constitutional: ABSENT: fever(s), headache(s), night sweats Eyes: ABSENT: visual disturbances Ears: ABSENT: hearing changes Nose, Mouth, and Throat: ABSENT: mouth pain Cardiovascular: ABSENT: edema, orthropnea, palpitations Respiratory: ABSENT: dyspnea, hemoptysis Gastrointestinal: ABSENT: hematemesis, hematochezia, melena Genitourinary: ABSENT: dysuria, hematuria Musculoskeletal: ABSENT: deformity, joint swelling Integumentary: ABSENT: pruritus Neurological: ABSENT: syncope, tingling, tremor(s), vertigo Endocrine: ABSENT: polydipsia, polyphagia, polyuria Hematologic/Lymphatic: ABSENT: easy bruising Physical Exam Vital Signs: Temp Pulse Resp BP Pulse Ox 97.9 F 58 L 16 114/58 L 100 12/18/17 07:15 12/18/17 07:15 12/18/17 07:15 12/18/17 07:15 12/18/17 07:15 Intake & Output 12/17/17 12/18/17 12/19/17 06:59 06:59 06:59 Intake Total 672 3099 Balance 672 3099 Weight 92.4 kg 94.3 kg General appearance: PRESENT: no acute distress, well-developed, well-nourished Head exam: PRESENT: atraumatic, normocephalic Eye exam: PRESENT: EOMI, PERRLA. ABSENT: scleral icterus Mouth exam: PRESENT: moist, neck supple Throat exam: ABSENT: tonsillar exudate, tonsillogmegaly Neck exam: ABSENT: meningismus, tenderness, thyromegaly Respiratory exam: PRESENT: symmetrical, unlabored. ABSENT: tachypnea, wheezes Cardiovascular exam: PRESENT: RRR, +S1, +S2 GI/Abdominal exam: PRESENT: soft. ABSENT: rebound, rigid, tenderness Extremities exam: ABSENT: joint swelling Neurological exam: PRESENT: oriented to time, oriented to situation, CN II-XII grossly intact Skin exam: PRESENT: mottled, normal color. ABSENT: urticaria, vesicles Results Laboratory Results: 12/18/17 05:42 12/18/17 05:42 12/18/17 12/18/17 05:42 05:42 WBC 3.4 L RBC 3.99 Hgb 7.8 L Hct 24.4 L MCV 61 L MCH 19.5 L MCHC 31.9 L RDW 23.9 H Plt Count 128 L Seg Neutrophils % 70.3 Lymphocytes % 15.5 Monocytes % 11.2 Eosinophils % 1.9 Basophils % 1.1 Absolute Neutrophils 2.4 Absolute Lymphocytes 0.5 Absolute Monocytes 0.4 Absolute Eosinophils 0.1 Absolute Basophils 0.0 Sodium 137.2 Potassium 3.9 Chloride 108 H Carbon Dioxide 24 Anion Gap 5 BUN 8 Creatinine 0.55 Est GFR ( Amer) > 60 Est GFR (Non-Af Amer) > 60 Glucose 85 Calcium 8.5 Total Bilirubin 0.9 AST 16 ALT 22 Alkaline Phosphatase 57 Total Protein 6.3 Albumin 3.3 L Impressions: Abdomen/Pelvis CT 12/16/17 13:11 IMPRESSION: 1. Minimal thickening with enhancement within sigmoid colon and rectum. Infectious versus inflammatory colitis. 2. Large left adnexal hypodensity, likely representing a benign ovarian cyst. Based on the patient's age in size, follow-up ultrasound recommended in 6 to 12 weeks to ensure stability versus resolution. Transvaginal US 12/16/17 15:51 IMPRESSION: Hemorrhagic cyst left ovary, 6.5 x 6 x 5 cm in size. No Doppler ultrasound evidence for left ovarian torsion Assessment & Plan - Diagnosis (1) Abnormal CT scan Plan: thickening of the sigmoid and rectum C.Diff has been ordered does not imply any bleeding could be non specific will exclude a colitis will need colonoscopy Risks, benefits and alternatives are discussed with the patient in detail further recommendations to follow (2) Anemia Qualifiers: Anemia type: iron deficiency Is this a current diagnosis for this admission?: Yes Plan: could be due to reasons as stated above however will exclude possible GI Bleeding could have an anastomotic ulcer exclude a colitis will need EGD and colonoscopy Risks, benefits and alternatives are discussed with the patient in detail further recommendations to follow - Time Time Spent: 50 to 70 Minutes
[2017-12-18] MEDS: ENOXAPARIN SODIUM INJ 40 MG/0.4 ML DISP.SYRIN SUBCUT SCH (10:14)
[2017-12-18] MEDS: PANTOPRAZOLE SODIUM 40 MG VIAL IV SCH ×2 (10:38→21:30)
[2017-12-18] MEDS ORDERED: PEG 3350/NA SULF,BICARB,CL/KCL 4000 ML PO ONE (14:00)
--- NOTE | 2017-12-18 16:21 | PDOC PROGRESS REPORT ---
Subjective Progress Note for:: 12/18/17 Subjective:: Assumed care today. Ms. Mason is a 42 yr old female with a PMH of bariatric surgery for weight loss in 2016 complicated by resistant iron deficiency anemia with multiple prior PRBC transfusion, last transfusion in June 2017 and multiple iron infusion who initially presented with left lower quadrant abdominal pain and diarrhea. CT of abdomen and pelvis with IV contrast in ED showed minimal thickening with enhancement within sigmoid colon and rectum likely infectious versus inflammatory colitis. A large left adnexal hypodensity was also noted follow-up transvaginal ultrasound showed hemorrhagic left ovarian cyst 6.5 x 6.5 cm in size no evidence of left ovarian torsion was noted. No acute event overnight. She says her LLQ pain has significantly improved. Her stools are also better formed now. No melena or hematochezia. She denies chest pain or SOB. No fever or chills. Reason For Visit: COLITIS,ANEMIA Physical Exam Vital Signs: Temp Pulse Resp BP Pulse Ox 98.4 F 66 15 118/62 100 12/18/17 15:16 12/18/17 15:16 12/18/17 15:16 12/18/17 15:16 12/18/17 15:16 Intake & Output 12/17/17 12/18/17 12/19/17 06:59 06:59 06:59 Intake Total 672 3099 Balance 672 3099 Weight 203 lb 11.314 oz 207 lb 14.334 oz General appearance: PRESENT: no acute distress, well-developed, well-nourished Head exam: PRESENT: atraumatic, normocephalic Eye exam: PRESENT: conjunctiva pink, EOMI, PERRLA. ABSENT: scleral icterus Ear exam: PRESENT: normal external ear exam Mouth exam: PRESENT: moist, tongue midline Neck exam: ABSENT: carotid bruit, JVD, lymphadenopathy, thyromegaly Respiratory exam: PRESENT: clear to auscultation alexandrea. ABSENT: rales, rhonchi, wheezes Cardiovascular exam: PRESENT: RRR. ABSENT: diastolic murmur, rubs, systolic murmur Pulses: PRESENT: normal dorsalis pedis pul GI/Abdominal exam: PRESENT: normal bowel sounds, soft, tenderness - very minimal direct LLQ tenderness, no rebound tenderness. ABSENT: distended, guarding, mass, organolmegaly, rebound Rectal exam: PRESENT: deferred Neurological exam: PRESENT: alert, awake, oriented to person, oriented to place , oriented to time, oriented to situation, CN II-XII grossly intact. ABSENT: motor sensory deficit Results Laboratory Results: 12/18/17 05:42 12/18/17 05:42 12/18/17 12/18/17 05:42 05:42 WBC 3.4 L RBC 3.99 Hgb 7.8 L Hct 24.4 L MCV 61 L MCH 19.5 L MCHC 31.9 L RDW 23.9 H Plt Count 128 L Seg Neutrophils % 70.3 Lymphocytes % 15.5 Monocytes % 11.2 Eosinophils % 1.9 Basophils % 1.1 Absolute Neutrophils 2.4 Absolute Lymphocytes 0.5 Absolute Monocytes 0.4 Absolute Eosinophils 0.1 Absolute Basophils 0.0 Sodium 137.2 Potassium 3.9 Chloride 108 H Carbon Dioxide 24 Anion Gap 5 BUN 8 Creatinine 0.55 Est GFR ( Amer) > 60 Est GFR (Non-Af Amer) > 60 Glucose 85 Calcium 8.5 Total Bilirubin 0.9 AST 16 ALT 22 Alkaline Phosphatase 57 Total Protein 6.3 Albumin 3.3 L Impressions: Abdomen/Pelvis CT 12/16/17 13:11 IMPRESSION: 1. Minimal thickening with enhancement within sigmoid colon and rectum. Infectious versus inflammatory colitis. 2. Large left adnexal hypodensity, likely representing a benign ovarian cyst. Based on the patient's age in size, follow-up ultrasound recommended in 6 to 12 weeks to ensure stability versus resolution. Transvaginal US 12/16/17 15:51 IMPRESSION: Hemorrhagic cyst left ovary, 6.5 x 6 x 5 cm in size. No Doppler ultrasound evidence for left ovarian torsion Assessment & Plan - Diagnosis (1) Colitis Is this a current diagnosis for this admission?: Yes Plan: CT shows inflammatory changes on the sigmoid and rectum. C diff was negative. GI has evaluated the patient and is planning to do an EGD and colonoscopy. Currently on levofloxacin. Will D/C antibiotics in 2-3 days depending on course. (2) Acute on chronic anemia Is this a current diagnosis for this admission?: Yes Plan: Iron studies do show the patient has iron deficiency. She has chronic microcytic anemia. Patient is also noted to have pancytopenia. She has evaluated the patient and plan to proceed with EGD and colonoscopy as part of anemia workup. Hematology is also following. - Time Time Spent with patient: 25-34 minutes
[2017-12-18] MEDS: LEVOFLOXACIN 750 MG/D5W RTU 750 MG/150 ML RTUPB IV SCH (17:00)
[2017-12-19] MEDS: METOCLOPRAMIDE HCL INJ/PF 10 MG/2 ML SDV IV SCH ×4 (05:40→23:16)
[2017-12-19 06:44] LABS: ABSOLUTE EOSINOPHILS # (AUTO) 0.1 10^3/uL (0.0-0.6); ABSOLUTE LYMPHOCYTES (AUTO) 0.4 10^3/uL (0.5-4.7); ABSOLUTE MONOCYTES (AUTO) 0.3 10^3/uL (0.1-1.4); ABSOLUTE NEUT (AUTO) 1.5 10^3/uL (1.7-8.2); BASOPHILS % (AUTO) 0.8 % (0-2); EOSINOPHILS % (AUTO) 3.4 % (0-6); HEMATOCRIT 24.9 % (36.0-47.0); LYMPHOCYTES % (AUTO) 16.6 % (13-45); MEAN CORPUSCULAR HEMOGLOBIN 19.6 pg (27.0-33.4); MEAN CORPUSCULAR HGB CONC 31.3 g/dL (32.0-36.0); MEAN CORPUSCULAR VOLUME 63 fl (80-97); PLATELET COUNT 131 10^3/uL (150-450); RED BLOOD COUNT 3.96 10^6/uL (3.72-5.28); RED CELL DISTRIBUTION WIDTH 23.6 % (11.5-14.0); SEGMENTED NEUTROPHILS % (AUTO) 66.2 % (42-78); TOTAL CELLS COUNTED % (AUTO) 100 %
[2017-12-19 07:33] LABS: WHITE BLOOD COUNT 2.3 10^3/uL (4.0-10.5)
[2017-12-19 07:41] LABS: HEMOGLOBIN 7.8 g/dL (12.0-15.5)
[2017-12-19 07:47] LABS: ANISOCYTOSIS 3+; HYPOCHROMASIA 2+; OVALOCYTES 1+; PLATELET COMMENT DECREASED; POIKILOCYTOSIS 1+; POLYCHROMASIA SLIGHT; TEAR DROP CELLS SLIGHT
--- NOTE | 2017-12-19 08:16 | PDOC PROGRESS REPORT ---
Subjective Progress Note for:: 12/19/17 Subjective:: Patient states that diarrhea had improved. She underwent colon prep last night for EGD and colonoscopy today. No new complaints today. ROS: No pain. No dyspnea. No nausea or vomiting. Reason For Visit: COLITIS,ANEMIA Physical Exam Vital Signs: Temp Pulse Resp BP Pulse Ox 98.5 F 58 L 15 103/46 L 96 12/19/17 07:30 12/19/17 07:30 12/19/17 07:30 12/19/17 07:30 12/19/17 07:30 Intake & Output 12/18/17 12/19/17 12/20/17 06:59 06:59 06:59 Intake Total 3099 6509 Balance 3099 6509 Weight 94.3 kg 94 kg General appearance: PRESENT: no acute distress, obese Head exam: PRESENT: normocephalic Respiratory exam: PRESENT: unlabored Extremities exam: ABSENT: pedal edema Neurological exam: PRESENT: alert, awake, oriented to person, oriented to place , oriented to time, oriented to situation Psychiatric exam: PRESENT: appropriate affect Skin exam: PRESENT: normal color Results Laboratory Results: 12/19/17 06:18 12/18/17 05:42 12/19/17 06:18 WBC 2.3 L D RBC 3.96 Hgb 7.8 L Hct 24.9 L MCV 63 L MCH 19.6 L MCHC 31.3 L RDW 23.6 H Plt Count 131 L Seg Neutrophils % 66.2 Lymphocytes % 16.6 Monocytes % 13.0 Eosinophils % 3.4 Basophils % 0.8 Absolute Neutrophils 1.5 L Absolute Lymphocytes 0.4 L Absolute Monocytes 0.3 Absolute Eosinophils 0.1 Absolute Basophils 0.0 Impressions: Abdomen/Pelvis CT 12/16/17 13:11 IMPRESSION: 1. Minimal thickening with enhancement within sigmoid colon and rectum. Infectious versus inflammatory colitis. 2. Large left adnexal hypodensity, likely representing a benign ovarian cyst. Based on the patient's age in size, follow-up ultrasound recommended in 6 to 12 weeks to ensure stability versus resolution. Transvaginal US 12/16/17 15:51 IMPRESSION: Hemorrhagic cyst left ovary, 6.5 x 6 x 5 cm in size. 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 She was requiring IV iron infusions every 2 weeks. She also did not respond as well as expected to blood transfusion. Her LDH is normal, indicating no evidence of hemolysis. Therefore, either she is still bleeding or there is a primary bone marrow problem. I am also concerned that her WBC count and PLT are mildly low. Although this may be genetic, I do not have baseline values. We discussed bone marrow biopsy for this. She understands that this may be needed if blood counts do not improve. Await GI work-up today.
[2017-12-19] MEDS: ENOXAPARIN SODIUM INJ 40 MG/0.4 ML DISP.SYRIN SUBCUT SCH (10:14)
[2017-12-19] MEDS: PANTOPRAZOLE SODIUM 40 MG VIAL IV SCH (10:18)
[2017-12-19] MEDS ORDERED: PROPOFOL INJ 200 MG/20 ML VIAL IV ONE (10:59)
[2017-12-19] MEDS ORDERED: DIPHENHYDRAMINE HCL 50 MG/ML VIAL IV PRN (11:34)
--- NOTE | 2017-12-19 12:17 | Operative Report ---
Operative Report DATE OF SURGERY: 12/19/17 Operative Report: The risks, benefits and alternatives of the procedure including the risks of bleeding, perforation requiring surgery are explained to the patient in detail and informed consent is obtained. The patient is brought back to the operating room and placed in a left, lateral decubital position. Timeout was called. Propofol medication is administered. A rectal examination is done which did not reveal any masses, tears or fissures. An Olympus videoscope was inserted into the patient's rectum. The scope was then carefully advanced all the way to the cecum. Cecum was identified by the usual anatomical landmarks including the ileocecal valve as well as the appendiceal office. Photodocumentation is obtained. The scope was then sequentially pulled back via the rest segments of the colon including the ascending colon, hepatic flexure, transverse colon, splenic flexure, descending colon and finally into the rectosigmoid portions of the colon. Retroflexion maneuver is performed. The risks benefits and alternatives of the procedure explained to the patient in detail and informed consent is obtained.A GIF Olympus video scope was inserted into the patient's mouth and hypopharynx, the esophagus is identified intubated and insufflated, the scope was then advanced through the esophagus stomach and duodenum, retroflexion maneuver is done the esophagus stomach and first and second portions of the duodenum examined PREOPERATIVE DIAGNOSIS: Possible GI bleeding. Chronic anemia. Abnormal CT scan indicating a possible thickening in the rectum and sigmoid POSTOPERATIVE DIAGNOSIS: Normal colonoscopy to the cecum. No active bleeding noted. No evidence of colitis. Biopsies obtained to rule out underlying lymphocytic, collagenous colitis. Internal hemorrhoids. Patient appears to have some sort of modified surgery; there is direct access from her pouch to the [place] stomach. It could indicate that the anastomosis has broken down. No ulcers are noted. No upper GI bleeding OPERATION: Colonoscopy with biopsy. EGD with biopsy SURGEON: SCARLETT WHITLEY ANESTHESIA: LMAC TISSUE REMOVED OR ALTERED: As noted above COMPLICATIONS: None. ESTIMATED BLOOD LOSS: None. INTRAOPERATIVE FINDINGS: As noted above PROCEDURE: Patient tolerated the procedure well No immediate postprocedure complications are noted She is sent back to her room in good condition Weight on biopsies No upper or lower GI bleeding is noted Follow-up as outpatient
--- NOTE | 2017-12-19 15:15 | PDOC PROGRESS REPORT ---
Subjective Progress Note for:: 12/19/17 Subjective:: Ms. Mason is a 42 yr old female with a PMH of bariatric surgery for weight loss in 2016 complicated by resistant iron deficiency anemia with multiple prior PRBC transfusion, last transfusion in June 2017 and multiple iron infusion who initially presented with left lower quadrant abdominal pain and diarrhea. CT of abdomen and pelvis with IV contrast in ED showed minimal thickening with enhancement within sigmoid colon and rectum likely infectious versus inflammatory colitis. A large left adnexal hypodensity was also noted follow-up transvaginal ultrasound showed hemorrhagic left ovarian cyst 6.5 x 6.5 cm in size no evidence of left ovarian torsion was noted. No acute event overnight. She denies acute complaint. Denies abdominal pain this morning. No recurrence of diarrhea. No melena or hematochezia. She denies chest pain or SOB. No fever or chills. Reason For Visit: COLITIS,ANEMIA Physical Exam Vital Signs: Temp Pulse Resp BP Pulse Ox 98.5 F 58 L 16 108/67 100 12/19/17 13:25 12/19/17 13:25 12/19/17 13:25 12/19/17 13:25 12/19/17 13:25 Intake & Output 12/18/17 12/19/17 12/20/17 06:59 06:59 06:59 Intake Total 3099 6509 500 Output Total 0 Balance 3099 6509 500 Weight 207 lb 14.334 oz 207 lb 3.752 oz General appearance: PRESENT: no acute distress, well-developed, well-nourished Head exam: PRESENT: atraumatic, normocephalic Eye exam: PRESENT: conjunctiva pink, EOMI, PERRLA. ABSENT: scleral icterus Ear exam: PRESENT: normal external ear exam Mouth exam: PRESENT: moist, tongue midline Neck exam: ABSENT: carotid bruit, JVD, lymphadenopathy, thyromegaly Respiratory exam: PRESENT: clear to auscultation alexandrea. ABSENT: rales, rhonchi, wheezes Cardiovascular exam: PRESENT: RRR. ABSENT: diastolic murmur, rubs, systolic murmur GI/Abdominal exam: PRESENT: normal bowel sounds, soft. ABSENT: distended, guarding, mass, organolmegaly, rebound, tenderness Rectal exam: PRESENT: deferred Neurological exam: PRESENT: alert, awake, oriented to person, oriented to place , oriented to time, oriented to situation, CN II-XII grossly intact. ABSENT: motor sensory deficit Results Laboratory Results: 12/19/17 06:18 12/18/17 05:42 12/19/17 06:18 WBC 2.3 L D RBC 3.96 Hgb 7.8 L Hct 24.9 L MCV 63 L MCH 19.6 L MCHC 31.3 L RDW 23.6 H Plt Count 131 L Seg Neutrophils % 66.2 Lymphocytes % 16.6 Monocytes % 13.0 Eosinophils % 3.4 Basophils % 0.8 Absolute Neutrophils 1.5 L Absolute Lymphocytes 0.4 L Absolute Monocytes 0.3 Absolute Eosinophils 0.1 Absolute Basophils 0.0 Impressions: Abdomen/Pelvis CT 12/16/17 13:11 IMPRESSION: 1. Minimal thickening with enhancement within sigmoid colon and rectum. Infectious versus inflammatory colitis. 2. Large left adnexal hypodensity, likely representing a benign ovarian cyst. Based on the patient's age in size, follow-up ultrasound recommended in 6 to 12 weeks to ensure stability versus resolution. Transvaginal US 12/16/17 15:51 IMPRESSION: Hemorrhagic cyst left ovary, 6.5 x 6 x 5 cm in size. No Doppler ultrasound evidence for left ovarian torsion Assessment & Plan - Diagnosis (1) Colitis Is this a current diagnosis for this admission?: Yes Plan: Resolved. CT shows inflammatory changes on the sigmoid and rectum. C diff was negative. Patient just had an EGD and colonoscopy which was unremarkable for any source of bleeding. Currently on levofloxacin. Will D/C antibiotics tomorrow. (2) Acute on chronic anemia Is this a current diagnosis for this admission?: Yes Plan: Iron studies do show the patient has iron deficiency. She has chronic microcytic anemia. Patient is also noted to have pancytopenia with teardrop cells and ovalocytes concerning for myelofibrosis or myelophthisis. Discussed with hem/onc and next step will be possible bone marrow biopsy. - Time Time Spent with patient: 25-34 minutes
[2017-12-19] MEDS: LEVOFLOXACIN 750 MG/D5W RTU 750 MG/150 ML RTUPB IV SCH (18:19)
[2017-12-19] MEDS: DEXTROSE 5%-NORMAL SALINE 1,000 ML IV PRN (21:09)
[2017-12-20 04:11] LABS: HEMATOCRIT 26.1 % (36.0-47.0); HEMOGLOBIN 8.4 g/dL (12.0-15.5); MEAN CORPUSCULAR HEMOGLOBIN 20.1 pg (27.0-33.4); MEAN CORPUSCULAR HGB CONC 32.3 g/dL (32.0-36.0); MEAN CORPUSCULAR VOLUME 62 fl (80-97); PLATELET COUNT 146 10^3/uL (150-450); RED BLOOD COUNT 4.18 10^6/uL (3.72-5.28); RED CELL DISTRIBUTION WIDTH 24.1 % (11.5-14.0); WHITE BLOOD COUNT 3.5 10^3/uL (4.0-10.5)
[2017-12-20 04:33] LABS: ANISOCYTOSIS 3+; OVALOCYTES SLIGHT; PLATELET COMMENT DECREASED; POIKILOCYTOSIS SLIGHT; POLYCHROMASIA SLIGHT; TEAR DROP CELLS SLIGHT
[2017-12-20 04:34] LABS: HYPOCHROMASIA 1+
[2017-12-20] MEDS: METOCLOPRAMIDE HCL INJ/PF 10 MG/2 ML SDV IV SCH (05:05)
--- NOTE | 2017-12-20 08:12 | PDOC PROGRESS REPORT ---
Subjective Progress Note for:: 12/20/17 Subjective:: Patient feeling well today. She was not able to talk to Dr. Ackerman after the procedure that she remembers. Today she feels bloated and a bit uncomfortable, but all symptoms on admission have now resolved. Reason For Visit: COLITIS,ANEMIA Physical Exam Vital Signs: Temp Pulse Resp BP Pulse Ox 98.6 F 51 L 16 117/59 L 99 12/20/17 07:12 12/20/17 07:12 12/20/17 07:12 12/20/17 07:12 12/20/17 07:12 Intake & Output 12/19/17 12/20/17 12/21/17 06:59 06:59 06:59 Intake Total 7509 1308 Output Total 0 Balance 7509 1308 Weight 94 kg 95.5 kg General appearance: PRESENT: no acute distress, obese Head exam: PRESENT: normocephalic Respiratory exam: PRESENT: unlabored GI/Abdominal exam: PRESENT: soft, tenderness - Mild throughout. Extremities exam: ABSENT: pedal edema Neurological exam: PRESENT: alert, awake Psychiatric exam: PRESENT: appropriate affect Skin exam: PRESENT: normal color Results Laboratory Results: 12/20/17 03:58 12/18/17 05:42 12/20/17 03:58 WBC 3.5 L RBC 4.18 Hgb 8.4 L Hct 26.1 L MCV 62 L MCH 20.1 L MCHC 32.3 RDW 24.1 H Plt Count 146 L Seg Neutrophils % Not Reportable Lymphocytes % Not Reportable Monocytes % Not Reportable Eosinophils % Not Reportable Basophils % Not Reportable Absolute Neutrophils Not Reportable Absolute Lymphocytes Not Reportable Absolute Monocytes Not Reportable Absolute Eosinophils Not Reportable Absolute Basophils Not Reportable Impressions: Abdomen/Pelvis CT 12/16/17 13:11 IMPRESSION: 1. Minimal thickening with enhancement within sigmoid colon and rectum. Infectious versus inflammatory colitis. 2. Large left adnexal hypodensity, likely representing a benign ovarian cyst. Based on the patient's age in size, follow-up ultrasound recommended in 6 to 12 weeks to ensure stability versus resolution. Transvaginal US 12/16/17 15:51 IMPRESSION: Hemorrhagic cyst left ovary, 6.5 x 6 x 5 cm in size. No Doppler ultrasound evidence for left ovarian torsion Assessment & Plan - Diagnosis (1) Hx of bariatric surgery Is this a current diagnosis for this admission?: Yes Plan: I reviewed the finding as per Dr. Ackerman's op note that there was communication between her gut and her [place] stomach. SHe understands that because of the surgery she will need IV iron as well as PO Vit D replacement for life. (2) Iron deficiency anemia Qualifiers: Iron deficiency anemia type: inadequate dietary iron intake Qualified Code( s): D50.8 - Other iron deficiency anemias Is this a current diagnosis for this admission?: Yes Plan: There was no evidence of active bleeding. Await biopsy reports. Her pancytopenia is stable and may be genetic or may resolve over the next few weeks. I will hold off on bone marrow biopsy for now and follow her in office as outpatient. I will arrange for the other Injectafer treatment as an outpatient as well. - Plan Summary Plan Summary: Patient was discussed with Dr. Foley. I agree with plans to discharge her today.
[2017-12-20] MEDS: ENOXAPARIN SODIUM INJ 40 MG/0.4 ML DISP.SYRIN SUBCUT SCH (09:46)
--- NOTE | 2017-12-20 10:55 | PDOC PROGRESS REPORT ---
Subjective Progress Note for:: 12/20/17 Subjective:: patient underwent EGD and colonoscopy yesterday biopsies are pending no evidence of bleeding in either the upper or lower GI tract no evidence of gross colitis will wait on biopsy patient may have had breakdown of her anastomosis since during her EGD there appeared to have a direct communication into her [place] gastric cavity no post procedure complications are noted she is going to be followed as an outpatient by Hematology Reason For Visit: COLITIS,ANEMIA Physical Exam Vital Signs: Temp Pulse Resp BP Pulse Ox 98.6 F 51 L 16 117/59 L 99 12/20/17 07:12 12/20/17 07:12 12/20/17 07:12 12/20/17 07:12 12/20/17 07:12 Intake & Output 12/19/17 12/20/17 12/21/17 06:59 06:59 06:59 Intake Total 7509 1308 Output Total 0 Balance 7509 1308 Weight 94 kg 95.5 kg General appearance: PRESENT: no acute distress, well-developed, well-nourished Head exam: PRESENT: atraumatic, normocephalic Eye exam: PRESENT: EOMI, PERRLA. ABSENT: scleral icterus Mouth exam: PRESENT: moist, neck supple Throat exam: ABSENT: tonsillar exudate, tonsillogmegaly Respiratory exam: PRESENT: unlabored. ABSENT: symmetrical, tachypnea, wheezes Cardiovascular exam: PRESENT: RRR, +S1, +S2 GI/Abdominal exam: PRESENT: soft. ABSENT: rebound, rigid, tenderness Extremities exam: ABSENT: joint swelling Neurological exam: PRESENT: oriented to time, oriented to situation, CN II-XII grossly intact Focused psych exam: ABSENT: restlessness Skin exam: PRESENT: normal color. ABSENT: mottled, pallor, urticaria, vesicles Results Laboratory Results: 12/20/17 03:58 12/18/17 05:42 12/20/17 03:58 WBC 3.5 L RBC 4.18 Hgb 8.4 L Hct 26.1 L MCV 62 L MCH 20.1 L MCHC 32.3 RDW 24.1 H Plt Count 146 L Seg Neutrophils % Not Reportable Lymphocytes % Not Reportable Monocytes % Not Reportable Eosinophils % Not Reportable Basophils % Not Reportable Absolute Neutrophils Not Reportable Absolute Lymphocytes Not Reportable Absolute Monocytes Not Reportable Absolute Eosinophils Not Reportable Absolute Basophils Not Reportable Impressions: Abdomen/Pelvis CT 12/16/17 13:11 IMPRESSION: 1. Minimal thickening with enhancement within sigmoid colon and rectum. Infectious versus inflammatory colitis. 2. Large left adnexal hypodensity, likely representing a benign ovarian cyst. Based on the patient's age in size, follow-up ultrasound recommended in 6 to 12 weeks to ensure stability versus resolution. Transvaginal US 12/16/17 15:51 IMPRESSION: Hemorrhagic cyst left ovary, 6.5 x 6 x 5 cm in size. No Doppler ultrasound evidence for left ovarian torsion Assessment & Plan - Diagnosis (2) Anemia Is this a current diagnosis for this admission?: Yes Plan: chronic in nature no evidence of upper or lower GI bleeding is noted will wait on biopsy follow up at outpatient IV iron as advised by Hematology treat if there is H.Pylori no evidence of colitis likely CT findings suggestive of incomplete distension during test. some internal hemorrhoids are incidentally noted as well - Time Time Spent with patient: 15-24 minutes
[2017-12-20 11:57] VITALS: BP 121/70
--- NOTE | 2017-12-20 14:35 | PDOC DISCHARGE SUMMARY ---
General - Admit/Disc Date/PCP Admission Date/Primary Care Provider: 12/16/17 17:29 PRASANNA DE GUZMAN JR, MD Discharge Date: 12/20/17 - Discharge Diagnosis (1) Colitis Is this a current diagnosis for this admission?: Yes (2) Acute on chronic anemia Is this a current diagnosis for this admission?: Yes - Additional Information Resuscitation Status: Full Code Prescriptions: Cholecalciferol (Vitamin D3) [Vitamin D3 2000 unit Tablet] 2,000 unit PO DAILY # 30 tablet Home Medications: Cholecalciferol (Vitamin D3) [Vitamin D3 2000 unit Tablet] 2,000 unit PO DAILY # 30 tablet 12/20/17 History of Present Illness History of Present Illness: RAMÍREZ 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 Patient presented to ED sharp, constant, nonradiating left lower abdominal pain 10/10 on severity scale, worsened by movement and palpation and decreased by staying still. She has had 3 nonbilious, nonbloody vomiting and 4 nonbloody diarrhea since yesterday. She also complaining of low- grade fever and painful urination however she denies any urgency, hesitancy, dysuria or any hematuria. She denies any chest pain shortness of breath, hematemesis, hemoptysis, melena, hematochezia or any vaginal bleeding. Past surgical history is positive for 2 , cholecystectomy, appendectomy and bariatric surgery. She is not taking any medications. She states she is not taking any iron for iron deficiency anemia as it has not been working. Her anemia has been evaluated in the past by a health club attendant and it was concluded that it was due to iron deficiency. CT of abdomen and pelvis with IV contrast in ED showed minimal thickening with enhancement within sigmoid colon and rectum likely infectious versus inflammatory colitis. A large left adnexal hypodensity was also noted follow- up transvaginal ultrasound showed hemorrhagic left ovarian cyst 6.5 x 6.5 cm in size no evidence of left ovarian torsion was noted. DONNIE and stool guaiac was in ED were both negative for any sign of bleeding. Hospitalist was consulted for admission for management of colitis and anemia. Hospital Course Hospital Course: Ms. Mason was admitted for acute on chronic anemia as well as colitis. She was noted ot have pancytopenia a well. Her presenting hemoglobin was 7.8. She received 2 u of PRBCs. Hemoglobin came up to 8.4. There are no signs of hemolysis. Hematology and GI were also consulted for further evaluation. EGD and colonoscopy were negative with no identifiable source of bleeding. There were subtle signs of breakdown form anastomotic site from previous bypass but not significantly concerning at the moment per GI. Per GI, patient will be referred to a bariatric specialist in the future when she follows up with GI. Her blood counts have remained stable. She will follow up with hematology/ oncology and will be reevaluated if a bone marrow biopsy will have to be pursued later. Patient also was noted to have a hemorrhgaic cyst on the left ovary. She was evaluated by [facility] who recommended non-surgical management of the cyst. She will ff-up with [facility] in 6 weeks. Patient will be discharged on vitamin D as per hem recommendation. She has a pending vitamin D level check but since it is a send out lab, it won't be back in the next few days. Instructed patient to discuss pending result with her new PCP. She will also be initiated on IV iron infusion when she follows up with hem /onc. Physical Exam Vital Signs: Temp Pulse Resp BP Pulse Ox 98.6 F 51 L 16 117/59 L 99 12/20/17 07:12 12/20/17 07:12 12/20/17 07:12 12/20/17 07:12 12/20/17 07:12 Intake & Output 12/19/17 12/20/17 12/21/17 06:59 06:59 06:59 Intake Total 7509 1308 1000 Output Total 0 Balance 7509 1308 1000 Weight 207 lb 3.752 oz 210 lb 8.663 oz General appearance: PRESENT: no acute distress, well-developed, well-nourished Head exam: PRESENT: atraumatic, normocephalic Eye exam: PRESENT: conjunctiva pink, EOMI, PERRLA. ABSENT: scleral icterus Ear exam: PRESENT: normal external ear exam Mouth exam: PRESENT: moist, tongue midline Neck exam: ABSENT: carotid bruit, JVD, lymphadenopathy, thyromegaly Respiratory exam: PRESENT: clear to auscultation alexandrea. ABSENT: rales, rhonchi, wheezes Pulses: PRESENT: normal dorsalis pedis pul GI/Abdominal exam: PRESENT: normal bowel sounds, soft. ABSENT: distended, guarding, mass, organolmegaly, rebound, tenderness Rectal exam: PRESENT: deferred Extremities exam: PRESENT: calf tenderness Neurological exam: PRESENT: alert, awake, oriented to person, oriented to place , oriented to time, oriented to situation, CN II-XII grossly intact. ABSENT: motor sensory deficit Results Laboratory Results: 12/20/17 03:58 12/18/17 05:42 12/20/17 03:58 WBC 3.5 L RBC 4.18 Hgb 8.4 L Hct 26.1 L MCV 62 L MCH 20.1 L MCHC 32.3 RDW 24.1 H Plt Count 146 L Seg Neutrophils % Not Reportable Lymphocytes % Not Reportable Monocytes % Not Reportable Eosinophils % Not Reportable Basophils % Not Reportable Absolute Neutrophils Not Reportable Absolute Lymphocytes Not Reportable Absolute Monocytes Not Reportable Absolute Eosinophils Not Reportable Absolute Basophils Not Reportable Impressions: Abdomen/Pelvis CT 12/16/17 13:11 IMPRESSION: 1. Minimal thickening with enhancement within sigmoid colon and rectum. Infectious versus inflammatory colitis. 2. Large left adnexal hypodensity, likely representing a benign ovarian cyst. Based on the patient's age in size, follow-up ultrasound recommended in 6 to 12 weeks to ensure stability versus resolution. Transvaginal US 12/16/17 15:51 IMPRESSION: Hemorrhagic cyst left ovary, 6.5 x 6 x 5 cm in size. No Doppler ultrasound evidence for left ovarian torsion Qualifiers - * PATIENT BEING DISCHARGED WITH ANY OF THE FOLLOWING DIAGNOSIS: No
== END 2017-12-20 12:52 | disposition home or self-care (01) | DRG 392 ==
LOC: ER 12:26 → EH 17:29 → OBSVTOIN 17:29 → 4S 18:23
PROVIDERS: ADMIT Emergency Medicine; ATTEND Emergency Medicine
PROC: 30233N1 Transfusion of Nonautologous Red Blood Cells into Peripheral Vein, Percutaneous Approach (ICD-10-PCS; 2017-12-16)
PROC: 30233N1 Transfusion of Nonautologous Red Blood Cells into Peripheral Vein, Percutaneous Approach (ICD-10-PCS; 2017-12-16)
PROC: 0DBF8ZX Excision of Right Large Intestine, Via Natural or Artificial Opening Endoscopic, Diagnostic (ICD-10-PCS; 2017-12-19)
PROC: 0DB98ZX Excision of Duodenum, Via Natural or Artificial Opening Endoscopic, Diagnostic (ICD-10-PCS; principal; 2017-12-19 11:15)
PROC: 0DB78ZX Excision of Stomach, Pylorus, Via Natural or Artificial Opening Endoscopic, Diagnostic (ICD-10-PCS; 2017-12-19 11:15)
DX: K52.9 Noninfective gastroenteritis and colitis, unspecified (principal); K95.89 Other complications of other bariatric procedure; K91.2 Postsurgical malabsorption, not elsewhere classified; D61.818 Other pancytopenia; D50.8 Other iron deficiency anemias; N83.202 Unspecified ovarian cyst, left side; K64.8 Other hemorrhoids; J45.909 Unspecified asthma, uncomplicated; Z90.49 Acquired absence of other specified parts of digestive tract; Z98.84 Bariatric surgery status; Z88.0 Allergy status to penicillin; Z88.5 Allergy status to narcotic agent; Z98.51 Tubal ligation status; Z82.49 Family history of ischemic heart disease and other diseases of the circulatory system; Z80.3 Family history of malignant neoplasm of breast; Z82.3 Family history of stroke
CPT/HCPCS: 36415; 36430; 43239; 45380; 74177; 76830; 80053; 81001; 81025; 813; 82272; 82607; 82652; 82728; 82746; 83540; 83550; 83615; 83690; 83735; 85025; 85027; 85045; 86850; 86900; 86901; 86920; 87040; 87045; 87177; 87205; 87493; 88305; 88342; 93976; 96374; 96375; 96376; 99285; J1170; J1439; J1956; J2405; J2704; J2765; J3490; J7050; P9016; S0164

== ENCOUNTER 2018-02-14 05:38 | Day surgery (SDC) | payer MEDICAID ==
[2018-02-13 12:03] LABS: HEMATOCRIT 39.8 % (36.0-47.0); HEMOGLOBIN 13.7 g/dL (12.0-15.5); MEAN CORPUSCULAR HEMOGLOBIN 27.5 pg (27.0-33.4); MEAN CORPUSCULAR HGB CONC 34.3 g/dL (32.0-36.0); MEAN CORPUSCULAR VOLUME 80 fl (80-97); PLATELET COUNT 164 10^3/uL (150-450); RED BLOOD COUNT 4.97 10^6/uL (3.72-5.28)
[2018-02-13 12:22] LABS: APPEARANCE,URINE CLEAR; BILIRUBIN,URINE NEGATIVE (NEGATIVE); COLOR,URINE YELLOW; GLUCOSE, URINE NEGATIVE (NEGATIVE); KETONES,URINE NEGATIVE (NEGATIVE); LEUKOCYTE ESTERASE,URINE NEGATIVE (NEGATIVE); NITRITE,URINE NEGATIVE (NEGATIVE); PROTEIN,URINE NEGATIVE (NEGATIVE); URINE SPECIFIC GRAVITY 1.009; UROBILINOGEN,URINE NEGATIVE mg/dL (<2.0)
[2018-02-13 12:26] LABS: ALANINE AMINOTRANSFERASE 37 U/L (9-52); ALBUMIN 4.3 g/dL (3.5-5.0); ALKALINE PHOSPHATASE 56 U/L (38-126); ANION GAP 13 (5-19); ASPARTATE AMINO TRANSFERASE 27 U/L (14-36); BILIRUBIN,DIRECT 0.1 mg/dL (0.0-0.4); BILIRUBIN,TOTAL 0.3 mg/dL (0.2-1.3); BLOOD UREA NITROGEN 9 mg/dL (7-20); CALCIUM 9.2 mg/dL (8.4-10.2); CARBON DIOXIDE 25 mmol/L (22-30); CHLORIDE 103 mmol/L (98-107); GLUCOSE 84 mg/dL (75-110); POTASSIUM 4.8 mmol/L (3.6-5.0); SODIUM 141.3 mmol/L (137-145); TOTAL PROTEIN 7.8 g/dL (6.3-8.2)
[~2018-02-14 05:38] MED LIST: ACETAMINOPHEN 1,000 MG/100 ML RTUPB IV PRN; CLINDAMYCIN 900 MG/D5W RTU 900 MG/50 ML RTUPB IV PRN; GENTAMICIN SULFATE 120 MG in DEXTROSE 5%-WATER 100 ML IV PRN; HYDROCODONE/ACETAMINOPHEN 5-325 MG TABLET PO PRN; HYDROMORPHONE HCL INJ/PF 2 MG/ML AMPULE IV PRN; IBUPROFEN 800 MG TABLET PO PRN; KETOROLAC TROMETHAMINE INJ/PF 30 MG/1 ML SDV IV PRN
[2018-02-14] MEDS ORDERED: CLINDAMYCIN 900 MG/D5W RTU 900 MG/50 ML RTUPB IV ONE (05:46)
[2018-02-14] MEDS ORDERED: MIDAZOLAM 2 MG/2 ML INJ ONE (06:57)
[2018-02-14] MEDS ORDERED: FENTANYL CITRATE INJ/PF 250 MCG/5 ML AMPULE ONE (06:57)
[2018-02-14] MEDS ORDERED: ACETAMINOPHEN 1,000 MG/100 ML RTUPB IV ONE ×2 (06:58→16:00)
[2018-02-14] MEDS ORDERED: HYDROMORPHONE HCL INJ/PF 2 MG/ML AMPULE ONE (06:58)
[2018-02-14] MEDS ORDERED: PROPOFOL INJ 200 MG/20 ML VIAL IV ONE (06:58)
[2018-02-14] MEDS ORDERED: PROMETHAZINE HCL INJ 25 MG/1 ML VIAL IV PRN (08:19)
[2018-02-14] MEDS ORDERED: DIPHENHYDRAMINE HCL 50 MG/ML VIAL IV PRN (08:19)
[2018-02-14] MEDS ORDERED: MEPERIDINE HCL/PF INJ 25 MG/1 ML DISP.SYRIN IV PRN (08:19)
[2018-02-14] MEDS ORDERED: FENTANYL CITRATE INJ/PF 100 MCG/2 ML AMPUL IV PRN ×3 (08:19)
--- NOTE | 2018-02-14 10:37 | OPERATIVE REPORT E ---
Operative Report NAME: RAMÍREZ ARCE : 1975 AGE: 42Y DATE OF SURGERY: 02/14/2018 ROOM: PREOPERATIVE DIAGNOSIS: 1. ABNORMAL UTERINE BLEEDING. 2. CHRONIC PELVIC PAIN. 3. ANEMIA REQUIRING IRON TRANSFUSIONS. 4. UTEROMEGALY. POSTOPERATIVE DIAGNOSIS: 1. ABNORMAL UTERINE BLEEDING. 2. CHRONIC PELVIC PAIN. 3. ANEMIA REQUIRING IRON TRANSFUSIONS. 4. UTEROMEGALY. OPERATION: Robotic-assisted total laparoscopic hysterectomy with bilateral salpingo-oophorectomy and lysis of adhesions. SURGEON: SUSANNA ODONNELL M.D. CRYSTAL FLAT GRINDER: First Darrian Garcia FINDINGS: A 15-week uterus, multiple left ovarian cysts of a chocolate consistency. COMPLICATIONS: None. ESTIMATED BLOOD LOSS: 200 mL. TISSUE REMOVED OR ALTERED: Uterus, cervix, and bilateral fallopian tubes and ovaries. PROCEDURE: The patient was taken to the operating room, prepared, and draped in the normal sterile fashion in the dorsal lithotomy position. Under sterile conditions a Juares catheter was placed to gravity. The speculum was placed into the vagina and the cervix was grasped on the anterior lip with a single-tooth tenaculum. The uterus was then sounded to approximately 12 cm. The cervix was then dilated to accommodate a medium VCare which was placed without difficulty in a normal fashion. The speculum and tenaculum were removed. Gloves were changed and attention was turned to the upper portion of the case. A skin incision was made approximately 3 cm above the umbilicus to accommodate a GelPort. The skin incision was made approximately 2.5 cm long. The subcutaneous layers were divided and the fascia was grasped with 2 Luz's and was divided using Hunter scissors sharply. The fascia was then extended laterally with the Hunter scissors until approximately 2.5 cm width was obtained. The GelPort was then placed without difficulty and the AirSeal and camera port were placed through the gel. The abdomen was inflated with approximately 2 liters of CO2 gas. The patient was placed in steep Trendelenburg and the camera was introduced with the above findings noted. There were several adhesions noted of the left ovary to the pelvic side wall as well as some mild adhesions of the right ovary. Omental adhesions were present but minimal and out of our field of surgery. Under direct visualization, two 5-mm ports were placed approximately 10 cm laterally on either side of the umbilicus. The robot was docked and the instruments were placed with the monopolar scissors on the right and a vessel sealer on the left. I then un-scrubbed and sat at the console where addressing the right adnexa first, as this is what presented itself more readily. The IP ligament was divided using the vessel sealer. The broad ligament was divided and the round ligament was divided again using vessel sealer. The ovary was moved medially, once this was accomplished I then began with skeletonization and coagulation of the uterine artery on the right adnexa. Following the uterus and hugging close until I reached the cervix, I continued to coagulate and skeletonize the uterine artery down to the level of the external os. The VCare cup could be noted through the mucosa and using this as a guide, I began creating a bladder flap and dissecting the bladder away bluntly. I then turned my attention to the left adnexa and first removed the adhesions of the pelvic side wall to the left ovary using a vessel sealer and monopolar scissors as needed. Once these adhesions were freed, I then identified the IP ligament and divided this using the vessel sealer just below the ovary. I then continued with transection of the broad ligament and round ligament again using the vessel sealer until the ovary was freed and then again moved the ovary medially. The rest of the uterine artery was then carefully skeletonized and transected and coagulated with the vessel sealer until we again reached the level of the external cervical os and the VCare could be noted through the mucosa. Once we had the VCare in a circumferential fashion, the colporrhaphy was begun on the anterior side, as this is what presented itself most readily and the colporrhaphy was performed with the monopolar scissors circumferentially around the cervix until this specimen was completely freed. This specimen was then removed completely through the vagina. The instruments were then changed to a Sky Needle Manager [employer] and the ProGrasp. My photography assistant introduced a V-Loc needle through the AirSeal assistance port and this was used to close the vaginal cuff, incorporating the uterosacral ligament as best we could. The uterosacral ligaments did not have a lot of strength or tensility to them and therefore did not offer up as much support as hoped. However, the cuff was carefully attached at both angles to the uterosacral ligaments. Once the cuff was completely closed, the V-Loc suture was cut and the needle was removed through the assistance port. We suction irrigated carefully and inspected for signs of hydroureter, which none were found. We were not able to completely identify the ureter through the patient's mucosa due to her body habitus, however, there were no signs of hydronephrosis. The robot was then undocked. All instruments were removed. The fascia was closed at the upper incision using 0 Vicryl in a running fashion. The subcutaneous layer was closed with a couple of interrupted plain catgut and the skin was closed at all 3 sites using 4-0 Vicryl. The patient tolerated the procedure well. Sponge, lap, and needle counts were correct x2, and the patient was taken to recovery in stable condition. DICTATING PHYSICIAN: SUSANNA ODONNELL M.D. [id number] PHY#: [id number] ID: [id number] JOB#: [id number] ACCT: [id number] cc:SUSANNA ODONNELL M.D. >
[2018-02-14] MEDS ORDERED: PROMETHAZINE HCL INJ 25 MG/1 ML VIAL ONE (10:48)
[2018-02-14] MEDS ORDERED: IBUPROFEN 800 MG TABLET PO PRN (10:58)
[2018-02-14] MEDS ORDERED: RINGERS SOLUTION,LACTATED 1,000 ML IV PRN (11:01)
[2018-02-14] MEDS: HYDROMORPHONE HCL INJ/PF 2 MG/ML AMPULE IV PRN (12:29)
[2018-02-14] MEDS ORDERED: GLYCOPYRROLATE 1 MG/5 ML SYRINGE ONE (13:48)
[2018-02-14] MEDS ORDERED: ONDANSETRON HCL INJ/PF 4 MG/2 ML SDV ONE (13:48)
[2018-02-14] MEDS ORDERED: NEOSTIGMINE METHYLSULFATE 10 MG/10 ML VIAL ONE (13:48)
[2018-02-14] MEDS ORDERED: ROCURONIUM BROMIDE INJ 50 MG/5 ML VIAL IV ONE (13:48)
[2018-02-14] MEDS ORDERED: DEXAMETHASONE SOD PHOSPHATE INJ 4 MG/1 ML VIAL ONE (13:48)
[2018-02-14] MEDS: KETOROLAC TROMETHAMINE INJ/PF 30 MG/1 ML SDV IV SCH ×2 (14:27→21:00)
[2018-02-14] MEDS: HYDROCODONE/ACETAMINOPHEN 5-325 MG TABLET PO PRN (17:52)
[2018-02-15] MEDS: HYDROMORPHONE HCL INJ/PF 2 MG/ML AMPULE IV PRN (00:41)
[2018-02-15] MEDS: KETOROLAC TROMETHAMINE INJ/PF 30 MG/1 ML SDV IV SCH (05:27)
[2018-02-15] MEDS: HYDROCODONE/ACETAMINOPHEN 5-325 MG TABLET PO PRN (05:27)
[2018-02-15 05:34] LABS: MEAN CORPUSCULAR HEMOGLOBIN 27.5 pg (27.0-33.4); MEAN CORPUSCULAR HGB CONC 34.2 g/dL (32.0-36.0); MEAN CORPUSCULAR VOLUME 81 fl (80-97); PLATELET COUNT 144 10^3/uL (150-450); RED BLOOD COUNT 4.11 10^6/uL (3.72-5.28); RED CELL DISTRIBUTION WIDTH 23.9 % (11.5-14.0)
[2018-02-15 05:55] LABS: HEMOGLOBIN 11.3 g/dL (12.0-15.5); WHITE BLOOD COUNT 4.5 10^3/uL (4.0-10.5)
[2018-02-15 08:21] VITALS: BP 112/72
[2018-02-15] MEDS ORDERED: CHOLECALCIFEROL (D3) 1,000 UNIT TABLET PO SCH (10:00)
[2018-02-15] MEDS ORDERED: MULTIVITAMIN TABLET PO SCH (10:00)
[2018-02-15] MEDS ORDERED: IBUPROFEN 800 MG TABLET PO PRN (14:00)
== END 2018-02-15 09:30 | disposition home or self-care (01) ==
LOC: OROUT 05:38 → 2S 11:44 → OROUT 02-15 09:30
PROVIDERS: ATTEND Obstetrics & Gynecology
DX: N93.9 Abnormal uterine and vaginal bleeding, unspecified (principal); G89.29 Other chronic pain; R10.2 Pelvic and perineal pain; N85.2 Hypertrophy of uterus; K66.0 Peritoneal adhesions (postprocedural) (postinfection); D64.9 Anemia, unspecified; N84.1 Polyp of cervix uteri; D25.1 Intramural leiomyoma of uterus; D25.2 Subserosal leiomyoma of uterus; N83.12 Corpus luteum cyst of left ovary; N70.11 Chronic salpingitis; N83.292 Other ovarian cyst, left side; Z88.0 Allergy status to penicillin; Z88.5 Allergy status to narcotic agent; Z88.6 Allergy status to analgesic agent; E66.9 Obesity, unspecified; Z68.41 Body mass index [BMI] 40.0-44.9, adult
CPT/HCPCS: 58571; S2900; 36415; 80053; 81001; 81025; 840; 85027; 86850; 86900; 86901; 88307; J0131; J1100; J1170; J1580; J1885; J2250; J2405; J2550; J2704; J3010; J3490; J7120

== ENCOUNTER 2019-04-18 22:14 | Emergency (ER) | payer BC, MEDICAID ==
[2019-04-18] MEDS ORDERED: ONDANSETRON 4 MG TAB.RAPDIS PO ONE (23:01)
--- NOTE | 2019-04-18 23:04 | ER Document Report ---
ED Medical Screen (RME) - General Stated Complaint: FEVER/COUGH/SHORTNESS OF BREATH Time Seen by Provider: 04/18/19 22:58 Primary Care Provider: JOAQUIN TEMPLETON FNP [Primary Care Provider] - Follow up as needed Mode of Arrival: Ambulatory Information source: Patient Notes: Patient presents emergency department with complaints of nausea vomiting diarrhea cough with fever up to 104 with symptoms started yesterday. Patient received she did receive the flu vaccine. No recent travel. Took tylenol at ~1700 today. I have greeted and performed a rapid initial assessment of this patient. A comprehensive ED assessment and evaluation of the patient, analysis of test results and completion of the medical decision making process will be conducted by additional ED providers. TRAVEL OUTSIDE OF THE [place] IN LAST 30 DAYS: No - Related Data Allergies/Adverse Reactions: acetaminophen [From Percocet] Allergy (Verified 02/13/18 09:56) morphine Allergy (Verified 12/16/17 13:18) oxycodone Allergy (Verified 12/16/17 13:18) Penicillins Allergy (Verified 12/16/17 13:18) Respiratory distress ibuprofen Adverse Reaction (Verified 12/16/17 13:18) Past Medical History - Past Medical History Cardiac Medical History: Denies: Hx Coronary Artery Disease, Hx Heart Attack, Hx Hypertension Pulmonary Medical History: Denies: Hx Asthma, Hx Bronchitis, Hx COPD, Hx Pneumonia Neurological Medical History: Denies: Hx Cerebrovascular Accident, Hx Seizures Renal/ Medical History: Denies: Hx Peritoneal Dialysis Musculoskeltal Medical History: Denies Hx Arthritis Psychiatric Medical History: Denies: Hx Depression Past Surgical History: Reports: Hx Abdominal Surgery - Hernia Repair, Hx Appendectomy, Hx Cholecystectomy, Hx Gynecologic Surgery - Tubal Ligation, Other - Gastric bariatric bypass, C-sec x 2, Paniculectomy. - Immunizations Hx Diphtheria, Pertussis, Tetanus Vaccination: Yes Physical Exam - Vital signs Vitals: Temp Pulse Resp BP Pulse Ox 100.4 F 86 16 118/67 98 04/18/19 22:22 04/18/19 22:22 04/18/19 22:22 04/18/19 22:22 04/18/19 22:22 Course - Vital Signs Vital signs: Temp Pulse Resp BP Pulse Ox 100.4 F 86 16 118/67 98 04/18/19 22:22 04/18/19 22:22 04/18/19 22:22 04/18/19 22:22 04/18/19 22:22 Doctor's Discharge - Discharge Referrals: JOAQUIN TEMPLETON FNP [Primary Care Provider] - Follow up as needed
[2019-04-18] MEDS ORDERED: ACETAMINOPHEN 325 MG TABLET PO ONE (23:57)
--- NOTE | 2019-04-19 00:05 | RADIOLOGY REPORT (SQ) ---
EXAM DESCRIPTION: [facility]: XR CHEST 2 VIEWS Views: 2 CLINICAL HISTORY: 43 years Female; cough fever; COMPARISON: None. FINDINGS: Lungs: Lungs are clear, with no focal infiltrate, pneumothorax, or pleural effusion. Mediastinum: Mediastinum is within normal limits for this positioning. Bones: Bony structures are unremarkable. IMPRESSION: 1. No acute cardiothoracic abnormality.
--- NOTE | 2019-04-19 00:19 | ER Document Report ---
ED Flu Like - General Chief Complaint: Flu Symptoms Stated Complaint: FEVER/COUGH/SHORTNESS OF BREATH Time Seen by Provider: 04/18/19 22:58 Primary Care Provider: JOAQUIN TEMPLETON FNP [Primary Care Provider] - Follow up as needed Mode of Arrival: Ambulatory Notes: 43-year-old woman presents to the emergency department with flulike symptoms which began yesterday. She states that she began feeling chilled and developed a fever yesterday. Awoke this morning sweating and higher temperature 103, she went to work and was sent home by her employer stating that she should get checked out for the flu. Patient has a history of asthma, has had a cough and some associated wheezing. She also complains of body aches and pains with fatigue. TRAVEL OUTSIDE OF THE [place] IN LAST 30 DAYS: No - Related Data Allergies/Adverse Reactions: acetaminophen [From Percocet] Allergy (Verified 02/13/18 09:56) morphine Allergy (Verified 12/16/17 13:18) oxycodone Allergy (Verified 12/16/17 13:18) Penicillins Allergy (Verified 12/16/17 13:18) Respiratory distress ibuprofen Adverse Reaction (Verified 12/16/17 13:18) Past Medical History - General Information source: Patient - Social History Smoking Status: Never Smoker Frequency of alcohol use: None Drug Abuse: None Family History: Reviewed & Not Pertinent Patient has suicidal ideation: No Patient has homicidal ideation: No - Past Medical History Cardiac Medical History: Denies: Hx Coronary Artery Disease, Hx Heart Attack, Hx Hypertension Pulmonary Medical History: Denies: Hx Asthma, Hx Bronchitis, Hx COPD, Hx Pneumonia Neurological Medical History: Denies: Hx Cerebrovascular Accident, Hx Seizures Renal/ Medical History: Denies: Hx Peritoneal Dialysis Musculoskeletal Medical History: Denies Hx Arthritis Psychiatric Medical History: Denies: Hx Depression Past Surgical History: Reports: Hx Abdominal Surgery - Hernia Repair, Hx Appendectomy, Hx Cholecystectomy, Hx Gynecologic Surgery - Tubal Ligation, Other - Gastric bariatric bypass, C-sec x 2, Paniculectomy. - Immunizations Hx Diphtheria, Pertussis, Tetanus Vaccination: Yes Review of Systems - Review of Systems Notes: Constitutional: + Fever. HENT: Negative for sore throat. Eyes: Negative for visual changes. Cardiovascular: Negative for chest pain. Respiratory: + Shortness of breath, + cough Gastrointestinal: Negative for abdominal pain, vomiting or diarrhea. Genitourinary: Negative for dysuria. Musculoskeletal: + Myalgia Skin: Negative for rash. Neurological: Negative for headaches, weakness or numbness. 10 point ROS negative except as marked above and in HPI. Physical Exam - Vital signs Vitals: Temp Pulse Resp BP Pulse Ox 100.4 F 86 16 118/67 98 04/18/19 22:22 04/18/19 22:22 04/18/19 22:22 04/18/19 22:22 04/18/19 22:22 - Notes Notes: PHYSICAL EXAMINATION: Physical Exam: General: Pleasant 43-year-old woman in mild distress secondary to myalgias fever and cough. HEENT: NC/AT, pupils equal round and reactive to light, MM moist,nares clear, oropharynx clear Neck: supple, no adenopathy, no masses. Lungs: clear, no wheezing, no rales no rhonchi CVS: Regular rate and rhythm no murmur gallop or rub Abdomen: Soft active nontender, no masses, no hepatosplenomegaly Ext: No edema clubbing or cyanosis. Neuro: Alert and responsive, moving all 4 extremities on command, cranial nerves intact. Skin: Intact no open lesions, no rash PSYCH: Normal mood, normal affect. Course - Vital Signs Vital signs: Temp Pulse Resp BP Pulse Ox 98.6 F 86 16 118/67 98 04/19/19 01:03 04/18/19 22:22 04/18/19 22:22 04/18/19 22:22 04/18/19 22:22 - Laboratory Result Diagrams: 04/19/19 00:13 04/19/19 00:13 Laboratory results interpreted by me: 04/19/19 04/19/19 04/19/19 00:13 00:13 00:13 WBC 2.8 L Plt Count 128 L [place] % (Auto) 15.1 H Sodium 136.1 L Urine Protein 30 H Urine Ascorbic Acid 40 H I have reviewed laboratory data and used this information for the treatment decisions regarding the patient. - Diagnostic Test Radiology reviewed: Image reviewed, Reports reviewed - Chest x-ray: No acute i nfiltrate or effusion Discharge - Discharge Clinical Impression: Influenza Fever Qualifiers: Fever type: unspecified Qualified Code(s): R50.9 - Fever, unspecified Condition: Good Disposition: HOME, SELF-CARE Instructions: Acetaminophen, Influenza ([facility]) [id number] Additional Instructions: Tonight you were diagnosed with influenza in the emergency department and given medications to begin your treatment. Please use ibuprofen and acetaminophen for fever control and muscle aches and pains. Please take the Tamiflu as prescribed, push fluids and increase your calorie intake. Follow-up with your doctor as needed or return to the emergency department if you have complications that need further attention. Prescriptions: Oseltamivir Phosphate [Tamiflu 75 mg Capsule] 75 mg PO BID #10 capsule Ondansetron [Zofran Odt 4 mg Tablet] 1 - 2 tab PO Q4H PRN #10 tab.rapdis PRN Reason: For Nausea/Vomiting Forms: Return to Work Referrals: JOAQUIN TEMPLETON FNP [Primary Care Provider] - Follow up as needed
[2019-04-19 00:26] LABS: ABSOLUTE LYMPHOCYTES (AUTO) 0.5 10^3/uL (0.5-4.7); ABSOLUTE MONOCYTES (AUTO) 0.4 10^3/uL (0.1-1.4); ABSOLUTE NEUT (AUTO) 1.8 10^3/uL (1.7-8.2); BASOPHILS % (AUTO) 0.3 % (0-2); EOSINOPHILS % (AUTO) 1.1 % (0-6); HEMATOCRIT 43.2 % (36.0-47.0); HEMOGLOBIN 14.9 g/dL (12.0-15.5); LYMPHOCYTES % (AUTO) 17.1 % (13-45); MEAN CORPUSCULAR HEMOGLOBIN 29.1 pg (27.0-33.4); MEAN CORPUSCULAR HGB CONC 34.5 g/dL (32.0-36.0); MEAN CORPUSCULAR VOLUME 84 fl (80-97); MONOCYTES % (AUTO) 15.1 % (3-13); PLATELET COUNT 128 10^3/uL (150-450); RED BLOOD COUNT 5.12 10^6/uL (3.72-5.28); RED CELL DISTRIBUTION WIDTH 13.4 % (11.5-14.0); SEGMENTED NEUTROPHILS % (AUTO) 66.4 % (42-78); TOTAL CELLS COUNTED % (AUTO) 100 %; WHITE BLOOD COUNT 2.8 10^3/uL (4.0-10.5)
[2019-04-19 00:44] LABS: APPEARANCE,URINE SLIGHTLY-CLOUDY; BILIRUBIN,URINE NEGATIVE (NEGATIVE); COLOR,URINE AMBER; GLUCOSE, URINE NEGATIVE (NEGATIVE); KETONES,URINE NEGATIVE (NEGATIVE); LEUKOCYTE ESTERASE,URINE NEGATIVE (NEGATIVE); NITRITE,URINE NEGATIVE (NEGATIVE); PROTEIN,URINE 30 mg/dL (NEGATIVE); URINE SPECIFIC GRAVITY 1.026; UROBILINOGEN,URINE NEGATIVE mg/dL (<2.0)
[2019-04-19 00:50] LABS: ALBUMIN 4.5 g/dL (3.5-5.0); ALKALINE PHOSPHATASE 78 U/L (38-126); ANION GAP 12 (5-19); ASPARTATE AMINO TRANSFERASE 29 U/L (14-36); BILIRUBIN,DIRECT 0.2 mg/dL (0.0-0.4); BILIRUBIN,TOTAL 0.7 mg/dL (0.2-1.3); BLOOD UREA NITROGEN 15 mg/dL (7-20); CALCIUM 9.4 mg/dL (8.4-10.2); CARBON DIOXIDE 24 mmol/L (22-30); CHLORIDE 100 mmol/L (98-107); GLUCOSE 98 mg/dL (75-110); POTASSIUM 4.9 mmol/L (3.6-5.0); TOTAL PROTEIN 8.1 g/dL (6.3-8.2)
[2019-04-19 00:58] LABS: A TYPE INFLUENZA AG NEGATIVE (NEGATIVE); B INFLUENZA AG NEGATIVE (NEGATIVE)
[2019-04-19] MEDS ORDERED: OSELTAMIVIR PHOSPHATE 75 MG CAPSULE PO ONE (02:06)
[2019-04-19 02:17] VITALS: BP 131/82
== END 2019-04-19 02:17 | disposition home or self-care (01) ==
LOC: ER 22:14
DX: J11.1 Influenza due to unidentified influenza virus with other respiratory manifestations (principal); R50.9 Fever, unspecified; R05 Cough; R11.2 Nausea with vomiting, unspecified; R06.02 Shortness of breath; Z88.6 Allergy status to analgesic agent; Z88.0 Allergy status to penicillin; Z98.51 Tubal ligation status; Z98.84 Bariatric surgery status
CPT/HCPCS: 99283; 36415; 85025; 81025; 80053; 81001; 87804; 71046; S0119; J3490